=== PATIENT | female | born 1960 | race Caucasian/White ===

== ENCOUNTER → 2017-07-16 | Day surgery (SDC) | payer OTHER ==
[~2017-07-16] VITALS: Ht 170.2 cm; Wt 80.7 kg
--- NOTE | 2017-07-16 16:57 | Operative Report ---
Operative/Inv Procedure Report Surgery Date: 07/16/17 Name of Procedure: Incisional biopsy of deep neck mass , left Pre-Operative Diagnosis: Neck mass, left, level III / IV Post-Operative Diagnosis: Same Estimated Blood Loss: scant Surgeon/Breastfeeding Program Coordinator: Vonda Le MD Anesthesia: general endotracheal tube Drains: Rubber band drain Specimens: Left neck mass Microbiology: Left neck mass Complications: None Condition: Stable on leaving the OR Operative Indication: Left neck mass Operative/Procedure Note Note: The patient was brought to the operating room, placeded on the operating room table in supine position. At first timeout was performed including patient's identification and the surgical procedure to be performed. Then general orotracheal anesthesia was induced. Endotracheal tube was secured over the right corner of the lips. Table was rotated 90 to the patient's left away from anesthesia with left neck toward the surgeon. Neck was slightly hyperextended and rotated to the right, left neck exposed. Neck was prepped and draped in the routine manner and surgery was performed. A horizontal incision was placed in a skin crease manner about 2 fingerbreadths above the clavicle overlying the inferior aspect of the mass. The mass was located under the sternocleidomastoid in its lateral aspect within level 3/4 of the neck. The incision was crosshatched for the end of the surgery skin approximation. The incision was carried with a 15 blade through the skin and subcutaneous tissue. Platysma was identified and transected . Skin was then elevated in subplatysmal manner at first superiorly. Sternocleidomastoid muscle came into view. Dissection was carried to identify the posterior border of the sternocleidomastoid. The posterior border of the sternocleidomastoid was then retracted and dissection was carried under the muscle. The neck mass was quite firm and easily identified. Dissection was carried directly over the mass until adequate exposure of its surface was accomplished. Incisional biopsy into the mass was then carried. Specimen was sent for cultures and pathology. Bleeding was controlled by application of pressure followed by Bovie cautery followed by application of Helotene into the defect for control of bleeding. A rubber band drain was inserted into the wound for drainage. Surgery was completed. Closure was then carried at first platysma with 5-0 Vicryl inverting sutures followed by skin closure with 5-0 Vicryl horizontal subcuticular running stitch. Dermabond was applied to the incision followed by Steri-Strips. Pressure dressing was placed with fluffs and wraparound four-inch gauze. Patient was then reawakened, extubated and taken to the recovery room in good condition. Estimated blood loss was scant. Findings: 4 x 5 cm mass level 3/4 left neck under the sternocleidomastoid especially posterior aspect Discharge Disposition: PACU
== END ==
LOC: STS 03:43
DX: C76.0 Malignant neoplasm of head, face and neck (principal); Z87.891 Personal history of nicotine dependence; M54.2 Cervicalgia; K21.9 Gastro-esophageal reflux disease without esophagitis
CPT/HCPCS: 87070; 87075; J0131; J2250

== ENCOUNTER 2017-08-22 02:11 | Inpatient (IN) | payer OTHER ==
[~2017-08-22] VITALS: Ht 170.2 cm; Wt 83.0 kg
[~2017-08-22 02:11] MED LIST: LANSOPRAZOLE30 M2 PO
[2017-08-22] MEDS ORDERED: LANSOPRAZOLE30 M2 PO (06:34)
--- NOTE | 2017-08-22 13:03 | Admission Core Measures ---
Acute Coronary Syndrome (CM) ACS Core Measures Acute Coronary Syndrome Diagnosis No Congestive Heart Failure (NEW) CHF Core Measures Congestive Heart Failure Diagnosis No Cerebrovascular Accident (NEW) CVA Core Measures CVA/TIA Diagnosis No Venous Thromboembolism VTE Core Valerie (View Protocol) VTE Risk Factors Surgery No Mechanical VTE Prophylaxis d/t N/A MechProphylax Ordered No VTE Pharm Prophylaxis d/t Surgical Contraindication Problem List As ranked by this Provider includes Assessment & Plan 1. Neck mass HOME MEDS Home Med List Lansoprazole 30 MG CAPSULE.DR 1 CAP PO DAILY REFLUX (Reported)
[2017-08-22] MEDS ORDERED: PERCOCET 5-3251 EACH PO (20:56)
--- NOTE | 2017-08-22 20:58 | Operative Report ---
Operative/Inv Procedure Report Surgery Date: 08/22/17 Name of Procedure: 1. Cervical Esophagoscopy 2. Direct laryngoscopy 3. Hypoharyngoscopy with base of tongue resection, left 4. Tonsillectomy 5. 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 Right tonsil 2. Left tonsil and base of tongue 3. Middle tongue biopsy 4. Neck dissection levels 2, 3, 4, 5 6. Supraclavicular nodes Microbiology: None Complications: None Condition: Stable on leaving the OR Operative Indication: Right-sided neck adenopathy Incisional biopsy consistent with squamous cell carcinoma, PT 16-positive PET scan - uptake within cervical lymph nodes, left and left right tonsil and base of tongue Patient now presents for selective neck dissection, tonsillectomy, base of tongue resection and panendoscopy Operative/Procedure Note Note: The patient was brought to the operating room, placeded on the operating room table in supine position. At first timeout was performed including patient's identification and the surgical procedure to be performed. Then general orotracheal anesthesia was induced with Nims tube for monitoring of the laryngeal nerves. Endotracheal tube secured in the left corner of the mouth. Operating room table was turned 90 away from anesthesia, toward the patient's right. Eyes were protected with tape and wet sponge. Patient's head was was sterilely dressed followed by a full body drape. Dental guard was inserted into the mouth and secured over upper teeth. Panendoscopy was performed. First, short cervical esophagoscope was used to carry cervical esophagoscopy. The esophagoscope was advanced in oral cavity, hypopharynx and esophageal inlet. The esophagoscope was then advanced into the esophageal inlet and from there into the cervical esophagus. The esophageal mucosa appeared to be clear and lumen was intact. There were no evidence of lesions. The esophagoscope was withdrawn. Next, anterior commissure laryngoscope and direct laryngoscopy was carried. The laryngoscope was advanced into oropharynx, hypopharynx and larynx. Base of tongue on the left had 1.5 cm mucosally covered lesion, right base of tongue appeared to be clear. Vallecula was intact. Epiglottis both over the vallecular and laryngeal surfaces was intact. Vocal cords appeared to be clear . Anterior and posterior commissure with clear. Piriform sinuses both right and left were intact without evidence of lesions. Laryngoscope was then withdrawn. Next, tonsillectomy was performed. Endotracheal tube was originally taped the left corner of the lip. The endotracheal tube was now repositioned to the midline for tonsillectomy and taped in the midline. Oral cavity was exposed with oral cavity retractor, endotracheal tube positioned in the midline over the tongue. Soft palate was palpated. There was no submucous cleft. Nasopharynx was visualized with a mirror. There was no evidence of adenoid hypertrophy. Right tonsil was grasped with curved Allis, incision was placed over the anterior superior pole of the mucosa only. Tonsil capsule was identified and dissection was carried from superior to inferior until the entire tonsil was removed. Cautery of the tonsillar bed was then carried to assure adequate hemostasis. Next the left tonsil was grasped with curved Allis. Care was taken not to crush the tonsil nor tear surrounding mucosa. Incision was placed with the Bovie over the anterior-superior pole through the mucosa only. Tonsillar capsule was identified and dissection carried from the superior to the inferior until the entire tonsil was removed. Dissection was carried with a Bovie, pencil-tip with foot control set on cut of 5 and coag of 15. During dissection but generous margin and the tonsil was taken by entering into the surrounding muscular layer to assure that adequate margin was obtained. Dissection was extended into the left base of tongue where mucosally covered lesion was present and it was dissected with a Bovie with an extension tip until the entire lesion was removed from base of tongue together with tonsillectomy specimen. At the end of the procedure tonsillar fossa was inspected for bleeders. There was no bleeding. Additional cautery was carried to assure adequate hemostasis. Since there was a significant defect of the left tonsillar fossa, anterior and posterior lip of tonsillar pillar were approximated with a 4-0 Vicryl stitch. Next, hypopharyngoscopy was carried. Hypopharyngoscope was introduced into the oral cavity and oropharynx and hypopharynx. Base of tongue was carefully examined. Adjacent to the excision site there was additional lymphoid hyperplasia which was removed with cup forceps and sent for pathology separately. Bleeding was controlled by application of a Bovie cautery on an extension tip. At the end of the procedure there was no bleeding. All drapes were removed and patient was now positioned for neck dissection. Table was rotated 180 to the patient's left away from anesthesia with left neck toward the surgeon. Neck was slightly hyperextended and head was rotated to the right, left neck exposed. NIMS endotracheal tube was secured over the right corner of the mouth and taped. NIMS monitor electrodes were inserted into the left lower lip and trapezius for nerve monitoring of the marginal mandibular and spinal accessory nerves. The electrodes were was secured in place with OpSite. They were then connected to the NIMS monitor which was then set neck dissection mode, 4 leads, which would also include the 2 leads on the Nims tube for monitoring of the laryngeal nerves. Ground electrodes were placed over the sternum. Neck was prepped and draped in the routine manner and surgery was performed. Patient did extend extensive adenopathy extending from the very superior aspect of the neck adjacent to mastoid tip, level IIb and the lowest and the largest node was located at the thoracic inlet, level IV and V. A horizontal incision was placed in a skin crease manner about 2 fingerbreadths below the mandible. The incision was crosshatched for the end of the surgery skin approximation. The incision was carried with a 15 blade through the skin and subcutaneous tissue. Platysma was identified and transected by using the clamp and cut technique to avoid injury to the marginal mandibular nerve. Skin was then elevated in subplatysmal manner at first superiorly, care was taken not to injure the marginal mandibular nerve. Then inferiorly including anterior neck to the midline and posterior neck over the sternocleidomastoid muscle all the way around to the posterior neck to the region of trapezius muscle. Cutaneous branches exiting the Erb's point were identified and preserved including greater auricular nerve. Finger palpation and examination revealed large 3 cm node at level IIA, as well as adjacent 2 cm no level IIB with adjacent smaller nodes, some of which were firm firm on palpation. Attention was then paid to the anterior medial border of the sternocleidomastoid muscle and dissection was carried anteriorly and deep to the sternocleidomastoid muscle , with the nodes being dissected away from the sternocleidomastoid mastoid muscle. Then superiorly dissection was carried to the tail of the parotid. Deep to the tail and adjacent to sternocleidomastoid muscle and there were additional lymph nodes which were all dissected with the specimen. Then along the tail of the parotid anteriorly to the submaxillary gland. Anterior facial vein was identified. It was preserved. Marginal mandibular nerve was never fully identified throughout the entire dissection. Most likely the marginal mandibular nerve was more anterior to the area of dissection and not in the way of dissection. Dissection was carried along the inferior border of the submaxillary gland and the deep to the level of the digastric muscle. Fibrofatty tissue below the submaxillary gland under the digastric muscle was dissected with the specimen. Dissection was carried deep to the level of internal jugular. Fibrofatty tissue over the internal jugular was dissected away from the jugular vein. Digastric muscle defined the superior limit of the dissection. Jugular vein was preserved. Spinal accessory nerve was then searched for and identified superficial to the 3 cm neck node as it was entering sternocleidomastoid muscle. Spinal accessory nerve was dissected and preserved. Sternocleidomastoid muscle was retracted laterally and dissection was carried deep and medial to it. Dissection was carried medially along the internal jugular and carotid. There was a significant venous plexus with large anterior jugular vein which was also preserved. Superior dissection was carried under the digastric and posterior lateral onto the mastoid tip until the 2 cm node was freed from its attachments. The node was then gradually dissected from the floor of the neck and down swept inferiorly. Medial dissection was carried along the internal jugular all the way down to the lower neck, level III. Omohyoid muscle was identified traversing the internal jugular. At this point superior neck dissection was interrupted and inferior incision was then placed. The incision was placed in the supraclavicular region in a horizontal manner. This incision was previously marked. There was prior incision in this area which was used for for incisional biopsy. Prior incisional scar was completely incorporated into the excision specimen. Subplatysmal planes were elevated and superior flap was connected with the neck dissection as above. The inferior dissection was carried to the level of the clavicle. The skin from prior incision was kept together with the neck dissection specimen. A large 6 cm node was then identified stradling across level IV and V. This node was adherent to the internal jugular. Careful dissection was carried to separate it from its attachments to the jugular. This followed by all dissecting the node away from the inferior most aspect in the supraclavicular region and then from the floor of the neck. Additional 2 nodes were identified in the supraclavicular region and these were removed separately and submitted separately for analysis. They appears to be soft. Now the superior neck dissection was connected with the inferior neck dissection and all the adenopathy was freed and specimen was removed. The specimen was marked with long stitch at the level II . Ansa cervicalis was identified and preserved. Surgery was completed. Wound was copiously irrigated. Additional bleeding sites cauterized with bipolar. Helotene powder was placed into the neck dissection bed. A #10 Tamazight suction drains were inserted into the wound for drainage. One drain coming through the superior incision at its lateral and anterior the anterior at the inferior incision, lateral end. Drains were stitched in place with 2-0 silk. Closure was then carried at first platysma with 4-0 Vicryl inverting sutures followed by skin closure with 5-0 Vicryl horizontal subcuticular running stitch. Dermabond was applied to the incision followed by Steri-Strips. Drain tubing was connected to the self suction carnisters. Pressure dressing was placed with fluffs and wraparound four-inch gauze. Patient was then reawakened, extubated and taken to the recovery room in good condition. There were no complications. Estimated blood loss was 50 mL. Findings: Left tonsil- inferior pole firm on palpation with an adjacent base of tongue 1.5 cm mucosally covered lesion Left neck- extensive adenopathy Discharge Disposition: PACU
[2017-08-22 21:00] VITALS: BP 134/84
--- NOTE | 2017-08-22 21:03 | Patient Discharge Instructions ---
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 Cervical Esophagoscopy 2. Direct laryngoscopy 3. Hypoharyngoscopy with base of tongue resection, left 4. Tonsillectomy 5. Selective neck dissection, left with Nims monitor Watch for these problems: Increased pain, fever > 101.3, chills, difficulty breathing, shortness of breath , redness, swelling or drainage from your incisions Other wound care: Keep incisions clean an dry Change dressing daily as needed Ok to shower Diet Continue normal diet: Yes Recommended Diet: Clear Liquids Activity Activity Self Limited: Yes Acute Coronary Syndrome Inclusion Criteria At DC or during hospital stay patient has or had the following: ACS DIAGNOSIS No Discharge Core Measures Meds if any: Prescribed or Continued at Discharge Meds if any: NOT Prescribed or Continued at Discharge Congestive Heart Failure Inclusion Criteria At DC or during hospital stay patient has or had the following: CHF DIAGNOSIS No Discharge Core Measures Meds if any: Prescribed or Continued at Discharge Meds if any: NOT Prescribed or Continued at Discharge Cerebrovascular accident Inclusion Criteria At DC or during hospital stay patient has or had the following: CVA/TIA Diagnosis No Discharge Core Measures Meds if any: Prescribed or Continued at Discharge Meds if any: NOT Prescribed or Continued at Discharge Venous thromboembolism Inclusion Criteria VTE Diagnosis No VTE Type NONE VTE Confirmed by (Test) NONE Discharge Core Measures - Per Current guidelines, there needs to be overlap - treatment for the first 5 days of Warfarin therapy. - If discharged on Warfarin prior to 5 days of - overlap therapy, the patient will need to be - assessed for post discharge needs including - *Post discharge parental anticoagulation - *Warfarin and/or parental anticoagulation education - *Follow up date to check INR post discharge At least 5 days overlap therapy as Inpatient No Meds if any: Prescribed or Continued at Discharge Note: Overlap Therapy is Warfarin and Anticoagulant Meds if any: NOT Prescribed or Continued at Discharge
--- NOTE | 2017-08-22 22:13 | PN- General Surgery ---
Subjective Subjective: Patient reports vomiting a small amount of clear/brown material when she arrived to the ICU. She reports throat discomfort when she exhales. She states her pain is well controlled and reports voiding. She tolerated ice chips and water without any dysphaia Objective Vital Signs and I&Os Intake & Output 08/22 1600 08/22 0800 08/22 0000 08/21 1600 08/21 0800 08/21 0000 Intake Total Output Total Balance Patient 180 lb Weight Physical Exam: Vitals - afebrile, VSS Gen - resting comfortably in bed awake an alert in NAD Neck - circumferential dressing in place c/d/i, jpx2 with serosanguineous drainage 5/10 cc, no active drainage, or hematoma appreciated, CN VII, X-XII intact Cardiac - S1S2 noted, RRR Lungs - CTAB, no w/r/r Ext - alps in place, no edema or calf tenderness Current Medications: Current Medications Sig/Rey Start time Last Medication Dose Route Stop Time Status Admin Acetaminophen 1,000 MG Q6P PRN 08/22 2129 UNVr IV Acetaminophen 1,000 MG .STK-MED ONE 08/22 0637 DC IV 08/22 0638 Cefazolin Sodium 2 GM IQ8 08/22 2199 UNVr N/A 1 UNIT IV 08/23 2159 Dextrose/Sodium 1,000 ML .[id number] 08/22 2130 AC 08/22 Chloride IV 212 Fentanyl Citrate 200 MCG .STK-MED ONE 08/22 0638 DC IM 08/22 0639 Heparin Sodium 5,000 UNIT Q8 08/23 0600 AC (Porcine) SC Hydromorphone HCl 2 MG .STK-MED ONE 08/22 0636 DC IM 08/22 0637 Ketorolac 15 MG Q6P PRN 08/22 1900 AC Tromethamine IV 08/25 1859 Midazolam HCl 2 MG .STK-MED ONE 08/22 1107 DC IM 08/22 1108 Midazolam HCl 2 MG .STK-MED ONE 08/22 0638 DC IM 08/22 0639 Morphine Sulfate 4 MG Q3P PRN 08/225 UNVr IV Morphine Sulfate 2 MG Q3P PRN 08/22 2130 UNVr IV Morphine Sulfate 6 MG Q2P PRN 08/22 2130 UNVr 08/22 IV 08/22 Morphine Sulfate 6 MG Q3P PRN 08/22 2129 UNVr IV Ondansetron HCl 4 MG Q6P PRN 08/22 2129 AC 08/22 IV 2208 Pantoprazole Sodium 40 MG DAILY 08/23 1000 AC IV Promethazine HCl 12.5 MG Q6P PRN 08/22 2129 AC IV 08/29 1859 Remifentanil HCl 2 MG .STK-MED ONE 08/22 0711 DC IV 08/22 0712 Remifentanil HCl 4 MG .STK-MED ONE 08/22 0637 DC IV 08/22 0638 Assessment/Plan Assessment/Plan 57 F POD 0 s/p cervical esophagoscopy, direct laryngoscopy, hypoharyngoscopy with base of left tongue resection, tonsillectomy, left selective neck dissection with Nims monitor secondary to squamous cell carcinoma metastatic to the left neck who is recovering well postoperatively Advance to clears, IVF Cont Ancef while drains are in JPx2 to bulb suction Pain regimen prn Antiemetics prn Monitor I&Os Keep trach kit at bedside GI/DVT ppx on board Cont ICU level of care Core Measures Venous Thromboembolism VTE Risk Factors Surgery No Mechanical VTE Prophylaxis d/t N/A MechProphylax Ordered No VTE Pharm Prophylaxis d/t Surgical Contraindication
--- NOTE | 2017-08-22 22:20 | Surg Short-stay <48hrs Dis Sum ---
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 Cervical Esophagoscopy 2. Direct laryngoscopy 3. Hypoharyngoscopy with base of tongue resection, left 4. Tonsillectomy 5. Selective neck dissection, left with Nims monitor with Dr. Le on 08/22/17 Summary/Significant Findings: Patient underwent an elective cervical esophagoscopy, direct laryngoscopy, hypoharyngoscopy with base of tongue resection, left, tonsillectomy, selective neck dissection, left with Nims monitor secondary to squamous cell carcinoma metastatic to left neck by Dr. Le and was brought to PACU and then transferred to the ICU in stable condition. Postoperatively, her diet was advanced and tolerated. She voided spontaneously and her pain was controlled with oral medication. She was deemed stable for discharge. Condition at Discharge: Stable Discharge Disposition: home or self care Discharge instructions provided to patient/family: Yes Post discharge follow-up plan: F/u with Dr. Le in 1-2 weeks
[2017-08-23] VITALS: BP 96/54
[2017-08-23 04:51] LABS: ABSOLUTE BASOPHIL COUNT 0 /CUMM (0.0-0.2); ABSOLUTE EOSINOPHIL COUNT 0 /CUMM (0.0-0.7); ABSOLUTE LYMPH COUNT 1.2 /CUMM (1.2-3.4); ABSOLUTE MONOCYTE COUNT 0.7 /CUMM (0.10-0.60); BASOPHIL % 0 % (0.0-2.0); EOSINOPHIL % 0 % (0-5); RED BLOOD CELL CT 3.56 /CUMM (4.20-5.40)
[2017-08-23 05:21] LABS: ABSOLUTE GRANULOCYTE CT 10.1 /CUMM (1.4-6.5); MEAN CORPUSCULAR HGB 30.3 PG (27.0-31.0); MEAN CORPUSCULAR HGB CONC 33.7 G/DL (33.0-37.0); MEAN CORPUSCULAR VOLUME 89.9 FL (81.0-99.0); PLATELET COUNT 201 /CUMM (130-400); RBC DISTRIBUTION WIDTH 12.8 % (11.5-14.5)
--- NOTE | 2017-08-23 05:52 | PN- General Surgery ---
See Addendum Subjective Subjective: Patient reports a sensation of mucus in the back of her throat, she reports dizziness when returned to bed after urinating on the commode. She states her pain is well controlled. She reports her nausea has resolved. Offer no other complaints. She states she only had ice chips and water last night, without any dysphagia. Objective Vital Signs and I&Os Vital Signs Date Time Temp Pulse Resp B/P B/P Pulse O2 O2 Flow FiO2 Mean Ox Delivery Rate 08/23 0400 Room Air 08/23 0000 97.2 60 16 96/54 95 Nasal 2.0L Cannula 08/23 0000 96 Nasal 2.0L Cannula 08/22 2129 97 Nasal 2.0L Cannula 08/22 2100 98.5 94 18 134/84 94 Nasal 2.0L Cannula Intake & Output 08/23 0800 08/23 0000 08/22 1600 08/22 0800 08/22 0000 08/21 1600 Intake Total 100 Output Total 285 Balance -185 Intake, IV 100 Output, 15 Drainage Output, 120 Emesis Output, Urine 150 Patient 183 lb 180 lb Weight Weight Bed scale Measurement Method Physical Exam: Gen - resting comfortably in bed awake an alert in NAD Neck - circumferential dressing in place c/d/i, jpx2 with serosanguineous drainage 4/4 cc, no active drainage, or hematoma appreciated Cardiac - S1S2 noted, RRR Lungs - CTAB, no w/r/r Ext - alps in place, no edema or calf tenderness Current Medications: Current Medications Sig/Rey Start time Last Medication Dose Route Stop Time Status Admin Acetaminophen 1,000 MG Q6P PRN 08/22 2129 AC IV Acetaminophen 1,000 MG .STK-MED ONE 08/22 0537 DC IV 08/22 637 Cefazolin Sodium 2 GM IQ8 08/22 2200 AC 08/22 N/A 1 UNIT IV 08/23 2159 2334 Dextrose/Sodium 1,000 ML .[id number] 08/22 2129 AC 08/22 Chloride IV 2125 Fentanyl Citrate 200 MCG .STK-MED ONE 08/22 637 DC IM 08/22 0639 Heparin Sodium 5,000 UNIT Q8 08/23 06 AC (Porcine) SC Hydromorphone HCl 2 MG .STK-MED ONE 08/22 2039 DC IM 08/22 2040 Hydromorphone HCl 2 MG .STK-MED ONE 08/22 2012 DC IM 08/22 2013 Hydromorphone HCl 2 MG .STK-MED ONE 08/22 0636 DC IM 08/22 0637 Influenza Virus 0.5 ML ONCE ONE 08/23 0030 DC Vaccine IM 08/23 0031 Ketorolac 15 MG Q6P PRN 08/22 1900 AC Tromethamine IV 08/25 1859 Midazolam HCl 2 MG .STK-MED ONE 08/22 1107 DC IM 08/22 1108 Midazolam HCl 2 MG .STK-MED ONE 08/22 0638 DC IM 08/22 0639 Morphine Sulfate 4 MG Q3P PRN 08/22 2215 AC IV Morphine Sulfate 2 MG Q3P PRN 08/22 2130 AC 08/23 IV 0315 Morphine Sulfate 6 MG Q2P PRN 08/22 2130 DC 08/22 IV 08/22 2212 2208 Morphine Sulfate 6 MG Q3P PRN 08/22 2130 AC IV Ondansetron HCl 4 MG Q6P PRN 08/22 2130 AC 08/22 IV 2208 Pantoprazole Sodium 40 MG DAILY 08/23 1000 AC IV Promethazine HCl 12.5 MG Q6P PRN 08/22 2130 AC IV 08/29 1859 Remifentanil HCl 4 MG .STK-MED ONE 08/22 1543 DC IV 08/22 1544 Remifentanil HCl 4 MG .STK-MED ONE 08/22 1438 DC IV 08/22 1439 Remifentanil HCl 2 MG .STK-MED ONE 08/22 0711 DC IV 08/22 0712 Remifentanil HCl 4 MG .STK-MED ONE 08/22 0637 DC IV 08/22 0638 Results Last 48 Hours of Labs: Laboratory Tests 08/23 0320 Chemistry Sodium (137 - 145 mmol/L) 142 Potassium (3.5 - 5.1 mmol/L) 4.0 Chloride (98 - 107 mmol/L) 104 Carbon Dioxide (22 - 30 mmol/L) 23 Anion Gap (5 - 16) 14 BUN (7 - 17 mg/dL) 13 Creatinine (0.5 - 1.0 mg/dL) 0.7 Estimated GFR (>60 ml/min) > 60 BUN/Creatinine Ratio (7 - 25 %) 18.6 Hematology CBC w Diff Pending WBC Pending RBC Pending Hgb Pending Hct Pending MCV Pending MCH Pending MCHC Pending RDW Pending Plt Count Pending MPV Pending Assessment/Plan Assessment/Plan 57 F POD 1 s/p cervical esophagoscopy, direct laryngoscopy, hypoharyngoscopy with base of left tongue resection, tonsillectomy, left selective neck dissection with Nims monitor secondary to 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 Advance to clears, 500 cc fluid bolus Monitor BP, avoid narcotics Cont Ancef while drains are in JPx2 to bulb suction, likely d/c today Pain regimen prn Antiemetics prn Monitor I&Os Keep trach kit at bedside GI/DVT ppx on board Anticipate d/c today if pt tolerates diet advancement Will d/w Dr. Le Core Measures Venous Thromboembolism VTE Risk Factors Surgery No Mechanical VTE Prophylaxis d/t N/A MechProphylax Ordered No VTE Pharm Prophylaxis d/t Surgical Contraindication
[2017-08-23 05:57] LABS: GRANULOCYTE % 84.7 % (42.2-75.2)
[2017-08-23 08:00] VITALS: BP 90/50
--- NOTE | 2017-08-23 13:05 | PN- Ear, Nose & Throat ---
Subjective Subjective: POD#1 Doing well Low energy level, sleepy Has been up and walking around Tolerating clear liquids well Review of Systems: Noncontributory Objective Vital Signs and I&Os Vital Signs Date Time Temp Pulse Resp B/P B/P Pulse O2 O2 Flow FiO2 Mean Ox Delivery Rate 08/23 0800 Room Air 08/23 0800 98.5 80 20 90/50 95 Room Air 08/23 0400 Room Air 08/23 0000 97.2 60 16 96/54 95 Nasal 2.0L Cannula 08/23 0000 96 Nasal 2.0L Cannula 08/22 2130 97 Nasal 2.0L Cannula 08/22 2100 98.5 94 18 134/84 94 Nasal 2.0L Cannula Intake & Output 08/23 1600 08/23 0800 08/23 0000 08/22 1600 08/22 0800 08/22 0000 Intake Total 1360 100 Output Total 728 285 Balance 632 -185 Intake, IV 1300 100 Intake, Oral 60 Output, 8 15 Drainage Output, 120 Emesis Output, Urine 720 150 Patient 183 lb Weight Weight Bed scale Measurement Method [id number] Oropharynx: tonsillar fossaefibrinous exudates Neck: Dressing changed, no edema no hematoma, Steri-Strips in place JPx2-minimal drainage Current Medications: Current Medications Sig/Rey Start time Last Medication Dose Route Stop Time Status Admin Acetaminophen 1,000 MG Q6P PRN 08/22 2130 AC 08/23 IV 0635 Cefazolin Sodium 2 GM IQ8 08/22 2200 AC 08/23 N/A 1 UNIT IV 08/23 2159 0800 Dextrose/Sodium 1,000 ML .[id number] 08/22 2129 AR 08/22 Chloride IV 2126 Heparin Sodium 5,000 UNIT Q8 08/23 0600 (Porcine) SC Hydromorphone HCl 2 MG .STK-MED ONE 08/22 2039 DC IM 08/22 2040 Hydromorphone HCl 2 MG .STK-MED ONE 08/22 2011 DC IM 08/22 2012 Influenza Virus 0.5 ML ONCE ONE 08/23 0030 DC 08/23 Vaccine IM 08/23 0031 1112 Ketorolac 15 MG Q6P PRN 08/22 1900 AC 08/23 Tromethamine IV 08/25 1859 1111 Morphine Sulfate 4 MG Q3P PRN 08/22 2215 AC IV Morphine Sulfate 2 MG Q3P PRN 08/22 2129 AC 08/23 IV 0315 Morphine Sulfate 6 MG Q2P PRN 08/22 2129 DC 08/22 IV 08/22 2211 2208 Morphine Sulfate 6 MG Q3P PRN 08/22 2129 AC IV Ondansetron HCl 4 MG Q6P PRN 08/22 2129 AC 08/23 IV 0903 Pantoprazole Sodium 40 MG DAILY 08/23 1000 AC 08/23 IV 1111 Promethazine HCl 12.5 MG Q6P PRN 08/22 2129 AC IV 08/29 1859 Remifentanil HCl 4 MG .STK-MED ONE 08/22 1543 DC IV 08/22 1544 Remifentanil HCl 4 MG .STK-MED ONE 08/22 1438 DC IV 08/22 1439 Sodium Chloride 500 ML BOLUS ONE 08/23 0600 DC 08/23 IV 08/23 0659 0634 Results Last 48 Hours of Labs: Laboratory Tests 08/23 0320 Chemistry Sodium (137 - 145 mmol/L) 142 Potassium (3.5 - 5.1 mmol/L) 4.0 Chloride (98 - 107 mmol/L) 104 Carbon Dioxide (22 - 30 mmol/L) 23 Anion Gap (5 - 16) 14 BUN (7 - 17 mg/dL) 13 Creatinine (0.5 - 1.0 mg/dL) 0.7 Estimated GFR (>60 ml/min) > 60 BUN/Creatinine Ratio (7 - 25 %) 18.6 Hematology CBC w Diff NO MAN DIFF REQ WBC (4.8 - 10.8 /CUMM) 12.0 H RBC (4.20 - 5.40 /CUMM) 3.56 L Hgb (12.0 - 16.0 G/DL) 10.8 L Hct (37 - 47 %) 32.0 L MCV (81.0 - 99.0 FL) 89.9 MCH (27.0 - 31.0 PG) 30.3 MCHC (33.0 - 37.0 G/DL) 33.7 RDW (11.5 - 14.5 %) 12.8 Plt Count (130 - 400 /CUMM) 201 MPV (7.4 - 10.4 FL) 9.0 Gran % (42.2 - 75.2 %) 84.7 H Lymphocytes % (20.5 - 51.1 %) 9.7 L Monocytes % (1.7 - 9.3 %) 5.6 Eosinophils % (0 - 5 %) 0 Basophils % (0.0 - 2.0 %) 0 Absolute Granulocytes (1.4 - 6.5 /CUMM) 10.1 H Absolute Lymphocytes (1.2 - 3.4 /CUMM) 1.2 Absolute Monocytes (0.10 - 0.60 /CUMM) 0.7 H Absolute Eosinophils (0.0 - 0.7 /CUMM) 0 Absolute Basophils (0.0 - 0.2 /CUMM) 0 Assessment/Plan Assessment/Plan 1. s/p neck dissection, left, tonsillectomy, base of tongue resection, left 2. Mildly elevated white count Stable postop Remove 1 drain, the upper drain today Continue with IV antibiotics Hep-Lock IV if tolerating by mouth well Continue with clear liquid diet Out of bed and ambulate Check CBC in a.m. Discharge tomorrow if patient continues to do well Core Measures Venous Thromboembolism VTE Risk Factors Surgery No Mechanical VTE Prophylaxis d/t N/A MechProphylax Ordered No VTE Pharm Prophylaxis d/t Surgical Contraindication
[2017-08-23 14:07] VITALS: BP 128/60
[2017-08-23 14:28] VITALS: BP 128/60
[2017-08-23 22:05] VITALS: BP 120/70
[2017-08-24 06:00] VITALS: BP 118/76
[2017-08-24 10:06] LABS: ABSOLUTE BASOPHIL COUNT 0 /CUMM (0.0-0.2); ABSOLUTE EOSINOPHIL COUNT 0.1 /CUMM (0.0-0.7); ABSOLUTE GRANULOCYTE CT 5.3 /CUMM (1.4-6.5); ABSOLUTE LYMPH COUNT 2.9 /CUMM (1.2-3.4); ABSOLUTE MONOCYTE COUNT 0.7 /CUMM (0.10-0.60); BASOPHIL % 0.3 % (0.0-2.0); EOSINOPHIL % 0.9 % (0-5); GRANULOCYTE % 58.5 % (42.2-75.2); HEMATOCRIT 32.3 % (37-47); MEAN CORPUSCULAR HGB 30.3 PG (27.0-31.0); MEAN CORPUSCULAR HGB CONC 33.4 G/DL (33.0-37.0); MEAN CORPUSCULAR VOLUME 90.7 FL (81.0-99.0); MEAN PLATELET VOLUME 8.5 FL (7.4-10.4); PLATELET COUNT 196 /CUMM (130-400); RBC DISTRIBUTION WIDTH 12.7 % (11.5-14.5); RED BLOOD CELL CT 3.56 /CUMM (4.20-5.40)
--- NOTE | 2017-08-24 10:54 | PN- Ear, Nose & Throat ---
Subjective Subjective: Pt has no major complaints this morning. She is tolerating small amounts of clears. Pain is reasonably controlled. One of the GONZALES drains was removed last night and one remains in place. Objective Vital Signs and I&Os Vital Signs Date Time Temp Pulse Resp B/P B/P Pulse O2 O2 Flow FiO2 Mean Ox Delivery Rate 08/24 0600 98.9 81 18 118/76 96 Room Air 08/23 2205 98.6 85 20 120/70 96 08/23 1428 98.1 80 20 128/60 97 Room Air 08/23 1407 98.1 80 20 128/60 97 Room Air Intake & Output 08/24 1600 08/24 0800 08/24 0000 08/23 1600 08/23 0800 08/23 0000 Intake Total 120 335 617 2630 100 Output Total 355 5 335 728 285 Balance -235 695 -35 632 -185 Intake, IV 1300 100 Intake, Oral 120 700 300 60 Output, 5 5 15 8 15 Drainage Output, 120 Emesis Output, Urine 350 320 720 150 Patient 183 lb Weight Weight Bed scale Measurement Method Physical Exam: Gen.: Patient is awake and alert. No acute distress. HEENT: Neck dressing remains in place and is clean. GONZALES output is scant serosanguineous. Cranial nerves are grossly intact. Cardiac: Regular Pulmonary: Clear bilaterally Assessment/Plan Assessment/Plan Patient is as 57-year-old female who is now postoperative day #2 status post left neck and base of tongue dissection tonsillectomy for squamous cell carcinoma. She is progressing well from a surgical standpoint. Plan: -Continue clear liquid diet. -I spoke with Dr. Le. She gave the okay for drain to be removed. This has been done without complication. Patient tolerated well and will be discharged home. -Prescriptions for Percocet and antibiotics were sent by Dr. Le to patient's home pharmacy. -Patient can follow-up in the office with Dr. Le. This is already been scheduled. Core Measures Venous Thromboembolism VTE Risk Factors Surgery No Mechanical VTE Prophylaxis d/t N/A MechProphylax Ordered No VTE Pharm Prophylaxis d/t Surgical Contraindication
[2017-08-24] MEDS ORDERED: CEFADROXIL500 M1 PO (11:53)
[2017-08-24 14:08] VITALS: BP 140/80
== END 2017-08-24 14:14 | DRG 129 ==
LOC: SDA 02:11 → STS 07:00 → EDSTATUS 07:00 → SDA 07:00 → ENRESERV 20:21 → ENTRNSPT 20:54 → EDTRNSPTSTS 20:59 → CMPTRNSPT 21:10 → CRI 21:23 → ENTRNSPT 08-23 10:46 → EDTRNSPTTYP 08-23 10:49 → EDTRNSPT 08-23 10:49 → CMPTRNSPT 08-23 10:50 → 2NA 08-23 10:56 → ENTRNSPT 08-24 14:07 → EDTRNSPTSTS 08-24 14:11 → EDTRNSPTTM 08-24 14:11 → 2NA 08-24 14:14 → CMPTRNSPT 08-24 14:23
PROVIDERS: Nurse Practitioner; Physician Assistant Surgical
PROC: 0CB Mouth and Throat, Excision (ICD-10-PCS; principal; 2017-08-22)
PROC: 0CJS8ZZ Inspection of Larynx, Via Natural or Artificial Opening Endoscopic (ICD-10-PCS; principal; 2017-08-22)
PROC: 0CTPXZZ Resection of Tonsils, External Approach (ICD-10-PCS; principal; 2017-08-22)
PROC: 07T20ZZ Resection of Left Neck Lymphatic, Open Approach (ICD-10-PCS; principal; 2017-08-22)
DX: C10.9 Malignant neoplasm of oropharynx, unspecified (principal); C77.0 Secondary and unspecified malignant neoplasm of lymph nodes of head, face and neck; K21.9 Gastro-esophageal reflux disease without esophagitis; Z80.0 Family history of malignant neoplasm of digestive organs; Z87.891 Personal history of nicotine dependence; Z80.8 Family history of malignant neoplasm of other organs or systems
CPT/HCPCS: 2NAP; CCU; 36415; 82436; 87086; C9399; J0131; J0171; J0690; J1100; J1644; J2270; J2405; J2550; J7040; J7042; Q2036

== ENCOUNTER → 2017-10-02 | Day surgery (SDC) | payer OTHER ==
[~2017-10-02] VITALS: Ht 170.2 cm; Wt 76.2 kg
[~2017-10-02] MED LIST changes: +CEFADROXIL500 M1 PO; +PERCOCET 5-3251 EACH PO
--- NOTE | 2017-10-02 09:23 | Operative Report ---
Operative/Inv Procedure Report Surgery Date: 10/02/17 Name of Procedure: Right axillary vein Port-A-Cath placement with ultrasound and fluoroscopic guidance Pre-Operative Diagnosis: Squamous cell carcinoma of the head and neck Post-Operative Diagnosis: Same Estimated Blood Loss: scant Surgeon/[employer] Buffer: Martín DOMINIQUE,Hugo Frias Anesthesia: local monitored anesthesi Implants: [employer] Operative/Procedure Note Note: Patient brought to the operating room and laid supine. Her arm tucked and a roll placed behind the shoulder. The left chest and neck were then prepped and draped. Patient was sedated. Using ultrasound imaging the right axillary vein was visualized and percutaneously accessed after local anesthesia placed. A wire was placed on the right atrium. Confirmation with fluoroscopic imaging was performed. The chest was then infiltrated further with local anesthesia an incision made over the wire. An inferiorly based pocket was created with blunt and cautery dissection. The port was placed into the pocket and the catheter measured under fluoroscopic imaging. It was trimmed to 22 cm. Using fluoroscopy the dilator was placed down into the SVC. The wire was removed and passed off the field. The catheter was placed through the peel-away sheath. Sheath was then removed. Final fluoroscopic images show the catheter in the atrial SVC junction. The catheter was aspirated and flushed with concentrated heparin. The port was anchored to the deep subcutaneous tissues tissues with 2- 0 Vicryl suture. The skin was closed with 3-0 and 4-0 Vicryl. Steri-Strips and sterile dressing applied. Sponge and needle counts are correct. CC: Mimi DOMINIQUE,Vonda Randolph; Shivam DOMINIQUE,Arcadio Yen; Katheryn DOMINIQUE,[facility]
--- NOTE | 2017-10-02 10:09 | RADIOLOGY REPORT ---
EXAMINATION: XR PORTABLE CHEST CLINICAL INFORMATION: Right chest Port-A-Cath placement COMPARISON: Chest x-ray 05/27/2017. PET CT 08/06/2017 TECHNIQUE: Portable frontal view of the chest was obtained. FINDINGS: No focal consolidation or mass. No pleural effusion or pneumothorax. Normal heart size. Regional skeleton intact. Degenerative changes of the bilateral acromioclavicular joints. There is a new CT compatible right subclavian approach chest port. The tip of the catheter is at the cavoatrial junction. IMPRESSION: New CT compatible right subclavian approach chest port with the tip of the catheter at the cavoatrial junction. No pneumothorax.
--- NOTE | 2017-10-02 12:49 | RADIOLOGY REPORT ---
EXAMINATION: INTRAOPERATIVE FLUOROSCOPIC GUIDANCE AND CHEST CLINICAL INFORMATION: Port-A-Cath placement. COMPARISON: Same day chest radiograph. TECHNIQUE: Fluoroscopic time was utilized in the OR for Dr. Resendiz. Fluoroscopic images were obtained in the AP projection. FINDINGS: Fluoroscopic guidance was provided during placement of a right-sided Port-A-Cath. FLUOROSCOPY TIME: 60 seconds of fluoroscopic time was utilized for the entirety of this examination. IMPRESSION: Fluoroscopic guidance was provided during placement of a right-sided Port-A-Cath.
== END ==
LOC: STS 03:55
DX: C76.0 Malignant neoplasm of head, face and neck (principal); Z87.891 Personal history of nicotine dependence; M19.90 Unspecified osteoarthritis, unspecified site
CPT/HCPCS: 71045; C1788; J1644; J2250

== ENCOUNTER 2017-11-04 07:57 | Inpatient (IN) | payer OTHER ==
[~2017-11-04] VITALS: Ht 167.6 cm; Wt 68.9 kg
--- NOTE | 2017-11-04 15:38 | History & Physical ---
See Addendum General Information and HPI MD Statement: I have seen and personally examined MONICA RANDALL and documented this H&P. The patient is a 57 year old F who presented with a patient stated chief complaint of [difficulty swallowing, nausea, weight loss]. Source of Information: patient, old records Exam Limitations: no limitations History of Present Illness: Mrs. Randall is a 57 yo lady with a hx. of recently diagnosed SCC of head and neck on May 2017. Patient was in her usual state of health until April 2017 when she started to noticed 2 suddenly enlarged lymph nodes in the left side of the neck, she went to an urgent care clinic and found to have fever and hypertensive urgency, she was sent to [facility] emergency department in which CT neck was done which showed left-sided lymphadenopathy, so patient was referred to surgery who did a needle biopsy which was nonconclusive, she was then referred to ENT doctor (Dr. Barillas) who recommended excisional biopsy of the lymph node which showed squamous cell carcinoma, currently she is status post surgical resection of tonsils, base of the tongue, with lymph node dissection of the left neck on . After surgery she was started on chemotherapy (cisplatin) once a week and radiotherapy 5 times a week, she started to develop inflammation and rash within her oral cavity and throat with dysphagia. She often times has nausea and vomiting and has a difficult time swallowing. As a result, she has been progressively losing weight. despite being on antiemetic her symptoms is not improving, she is on clear liquid diet, but she has difficulty eating as she feels all the time as there is hair inside her mouth and throat, she also lost the taste sense. She is seen in interventional radiology clinic for consideration of gastrostomy tube placement for nutritional supplementation as lately she started to feel weak, hungry all the time, she lost weigt since her surgery in [facility] about 15 Ib. Allergies/Medications Allergies: Coded Allergies: Penicillins (PER PT MD CRAFT ADDED PCN 10/01/17) diphenhydramine (From BENADRYL) (BODY ACHES 10/01/17) doxycycline (ANAPHYLAXIS 10/01/17) guaifenesin (From ROBITUSSIN) (BODY ACHES 10/01/17) oxacillin (ANAPHYLACTIC 10/01/17) Home Med list Lansoprazole 30 MG CAPSULE.DR 1 CAP PO DAILY REFLUX (Reported) Prochlorperazine Maleate 10 MG TABLET 1 TAB PO Q6 NAUSEA (Reported) Saliva Substitute Combo No.2 (Caphosol) 900 ML SOLUTION 900 ML PO DAILY PRN ITCHING (Reported) Past History Medical History Neurological: NONE EENT: NONE Cardiovascular: NONE Respiratory: NONE Gastrointestinal: GERD Hepatic: NONE Renal: NONE Musculoskeletal: osteoarthritis Psychiatric: NONE Endocrine: NONE Blood Disorders: NONE Cancer(s): NONE 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 Ambulation: independent, cane, walker, non-ambulatory Review of Systems Review of Systems Constitutional: Reports: malaise. EENTM: Reports: throat pain. Cardiovascular: Reports: no symptoms. Respiratory: Reports: no symptoms. GI: Reports: nausea. Genitourinary: Reports: no symptoms. Musculoskeletal: Reports: no symptoms. Skin: Reports: no symptoms. Neurological/Psychological: Reports: no symptoms. Hematologic/Endocrine: Reports: no symptoms. Immunologic/Allergic: Reports: no symptoms. All Other Systems: Reviewed and Negative Exam & Diagnostic Data Last 24 Hrs of Vital Signs/I&O Vital Signs Date Time Temp Pulse Resp B/P B/P Pulse O2 O2 Flow FiO2 Mean Ox Delivery Rate 11/04 1553 98.6 68 20 106/78 97 Room Air Physical Exam General Appearance Alert, Oriented X3, Cooperative, No Acute Distress Skin No Rashes, No Breakdown, No Significant Lesion HEENT Atraumatic, PERRLA, EOMI, Mucous Membr. moist/pink Neck Supple, No JVD, No thryomegaly, left side of the neck incision scar Lymphatic Axillary nl, Cervical nl Cardiovascular Regular Rate, Normal S1, Normal S2, No Murmurs Lungs Clear to Auscultation, Normal Air Movement Abdomen Normal Bowel Sounds, Soft, No Tenderness Neurological Normal Gait, Normal Speech, Strength at 5/5 X4 Ext, Normal Tone, Sensation Intact, Cranial Nerves 3-12 NL Extremities No Edema, Normal Pulses Vascular Normal Pulses, Pulses Symmetrical Last 24 Hrs of Labs/Vito: No labs Diagnostic Data EKG Results Sinus rhythm, 73 QTC 415 No acute changes except for flattening of T waves in V2 CXR Results Chest x-ray at 10/02/17: New CT compatible right subclavian approach chest port with the tip of the catheter at the cavoatrial junction. No pneumothorax. Other Results CT-head and neck at 05/27/17: Left-sided lymphadenopathy PET scan at 08/06/17: IMPRESSION: 1. Intense abnormal FDG activity in the left lingual/palatine tonsillar region most consistent with a primary malignancy. 2. Extensive intensely FDG avid left cervical lymphadenopathy most consistent with malignant metastases. 3. Mild FDG activity in the right eustachian tube region with no corresponding CT abnormality. This is probably inflammatory or physiological in etiology. 4. A 0.2 cm left upper lobe pulmonary nodule is too small to be characterized on the FDG PET images. Follow-up of this with diagnostic CT imaging in approximately 6 months is recommended. 5. No additional abnormalities suspicious for other metastatic or malignant lesions are noted. Assessment/Plan Assessment: Mrs. Randall is a 57 yo lady with a hx. 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 #Dysphagia, Dysgeusia #Intractable nausea #Weight loss Plan: * Will admit the patient under observation to general medicine floor * We'll start her on a clear liquid diet for now but she will be nothing by mouth after midnight for G-tube placement tomorrow * NG tube to be placed at the night, with IV contrast is going to be sent from IR (I already spoke to the nurse at IR and she is going to send contrast to the floor) * Nothing by mouth after midnight * Will order EKG, Tigan for nausea * IV Protonix for acid reflux * Will continue Caphasol We'll hold on anticoagulation for now till G-tube placement tomorrow She is full code As Ranked By This Provider Problem List: 1. Squamous cell carcinoma 2. Nausea 3. Dysphagia Core Measures/Misc (04/14) Acute Coronary Syndrome ACS Diagnosis: No Congestive Heart Failure Congestive Heart Failure Diagnosis No Cerebrovascular Accident CVA/TIA Diagnosis: No VTE (View Protocol) VTE Risk Factors Acute Medical Illness No Mechanical VTE Prophylaxis d/t N/A MechProphylax Ordered No VTE Pharm Prophylaxis d/t Surgical Contraindication Sepsis (View protocol) Sepsis Present: No region most consistent with a primary malignancy. 2. Extensive intensely FDG avid left cervical lymphadenopathy most consistent with malignant metastases. 3. Mild FDG activity in the right eustachian tube region with no corresponding CT abnormality. This is probably inflammatory or physiological in etiology. 4. A 0.2 cm left upper lobe pulmonary nodule is too small to be characterized on the FDG PET images. Follow-up of this with diagnostic CT imaging in approximately 6 months is recommended. 5. No additional abnormalities suspicious for other metastatic or malignant lesions are noted. Assessment/Plan Assessment: Thank you FranciCandelaria Randall is a 57 yo lady with a hx. 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 #Dysphagia, Dysgeusia #Intractable nausea Plan: * Will admit the patient under observation to general medicine floor * We'll start her on a clear liquid diet for now but she will be nothing by mouth after midnight for G-tube placement tomorrow * NG tube to be placed at the night, with IV contrast is going to be sent from IR (I ordered spoke to the nurse at IR and she is going to send contrast to the floor) * Nothing by mouth after midnight * Will order EKG, Tigan for nausea * IV Protonix for acid reflux * Will continue Caphasol She is full code
[2017-11-04 15:53] VITALS: BP 106/78
[2017-11-04] MEDS ORDERED: CAPHOSOL900 ML PO (17:23)
[2017-11-04] MEDS ORDERED: PROCHLORPERAZIN10 MG PO (17:26)
[2017-11-04 22:28] VITALS: BP 100/56
--- NOTE | 2017-11-04 23:46 | Event Note ---
See Addendum Event Note Event Note: Called by residential sales rep to place NGT. No residents comfortable enough with their NGT placement skills to place. RN on floor attempted without success. Pt with hx oral cancer with progressive dysphagia, and was admitted early this afternoon for NGT placement to administer contrast for IR feeding tube placement tomorrow. Unclear as to why this NGT was not placed earlier in the day, as it has been approximately 8hr since admission H&P was completed. NGT easily placed via R nare. Gastric placement confirmed via ascultation of stomach, and return of gastric contents returned on wall suction. Pt tolerated procedure well. Recommend IV PPI as initial gastric contents were blood tinged.
--- NOTE | 2017-11-05 00:19 | RADIOLOGY REPORT ---
EXAMINATION: XR PORTABLE CHEST CLINICAL INFORMATION: Intractable vomiting COMPARISON: 10/02/2017 TECHNIQUE: Portable frontal view of the chest was obtained. FINDINGS: The enteric tube extends into the stomach. Right chest wall CT compatible port terminates near the cavoatrial junction. The lungs are well expanded. There is no focal consolidation, edema, or effusion. No pneumothorax. The cardiomediastinal silhouette is within normal limits. No acute osseous abnormality. IMPRESSION: No acute pulmonary findings.
[2017-11-05 06:51] VITALS: BP 120/80
--- NOTE | 2017-11-05 07:01 | PN- Housestaff ---
Bryon Dawkins MD,[facility] 11/05/17 0701: Subjective Follow-up For: PEG tube placement Subjective: patient is under observation in GM floor. Patient visited today, ill looking lady, was lying in bed, was alert and oriented. present at the bedside. No fever or chills, no shortness of breathing, no chest pain, no other events. NG tube in place. contrast administered for PEG tube placement today. IR recommended to start feeding after 24 hours. Had conversation with Nutrition regarding regimen for feeding. Pain regimen and antiemetics administered. Review of Systems Constitutional: Reports: see HPI. Objective Last 24 Hrs of Vital Signs/I&O Vital Signs Date Time Temp Pulse Resp B/P B/P Pulse O2 O2 Flow FiO2 Mean Ox Delivery Rate 11/06 0652 97.9 75 20 116/70 97 Room Air 11/05 2207 98.6 91 19 120/80 94 Room Air 11/05 1426 97.6 78 18 136/74 98 Room Air Intake & Output 11/06 0800 11/06 0000 11/05 1600 Intake Total 480 480 800 Output Total 300 Balance 480 480 500 Intake, IV 480 480 Intake, Oral 0 0 800 Output, Urine 300 Physical Exam General Appearance: Alert, Oriented X3, Cooperative, No Acute Distress Skin Temp/Moisture Exam: Warm/Dry Sepsis Skin Exam (color): Normal for Ethnicity HEENT: Atraumatic Cardiovascular: Regular Rate, Normal S1, Normal S2 Lungs: Clear to Auscultation, Normal Air Movement Abdomen: Soft, No Tenderness Current Medications: Current Medications Sig/Rey Start time Last Medication Dose Route Stop Time Status Admin Dextrose/Sodium 1,000 ML Q20H 11/05 1515 AC 11/06 Chloride IV 0546 Fentanyl Citrate 100 MCG .STK-MED ONE 11/05 0957 DC IM 11/05 0958 Glucagon 0 .STK-MED ONE 11/05 1128 DC .ROUTE Glucagon 0 .STK-MED ONE 11/05 1105 DC .ROUTE Glycerin 2 SPRAY Q2P PRN 11/04 1845 AC PO Hydromorphone HCl 0 .STK-MED ONE 11/05 1213 DC .ROUTE Ioversol 0 .STK-MED ONE 11/05 1030 DC IV Ketamine HCl 50 MG .STK-MED ONE 11/05 0957 DC IM 11/05 0958 Lidocaine 0 .STK-MED ONE 11/05 1030 DC .ROUTE Midazolam HCl 2 MG .STK-MED ONE 11/05 0957 DC IM 11/05 0958 Morphine Sulfate 1 MG Q4P PRN 11/05 1515 11/06 IV 0539 Ondansetron HCl 4 MG Q6P PRN 11/05 1515 11/06 IV 0145 Pantoprazole Sodium 40 MG DAILY 11/04 1955 AC IV Phenol 2 SPRAY Q2P PRN 11/04 2330 11/05 EXT 0133 Trimethobenzamide HCl 200 MG TID PRN 11/04 1645 11/05 IM 0443 Last 24 Hrs of Lab/Vito Results Last 24 Hrs of Labs/Mics: Laboratory Tests 11/05/17 0715: Anion Gap 16, Estimated GFR > 60, BUN/Creatinine Ratio 18.6, Total Beta HCG NEGATIVE, CBC w Diff NO MAN DIFF REQ, RBC 3.42 L, MCV 88.6, MCH 31.0, MCHC 35.0 , RDW 12.8, MPV 8.1, Gran % 60.0, Lymphocytes % 26.1, Monocytes % 12.7 H, Eosinophils % 0.9, Basophils % 0.3, Absolute Granulocytes 2.1, Absolute Lymphocytes 0.9 L, Absolute Monocytes 0.5, Absolute Eosinophils 0, Absolute Basophils 0 Assessment/Plan Assessment: Mrs. Randall is a 57 yo lady with a hx. 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 #Dysphagia, Dysgeusia #Intractable nausea #Weight loss Plan: - patient was placed under observation to general medicine floor - PEG tube placement today. IV contrast administered last night by NG tube - pain management with MS IV, antiemetic zofran - IV Protonix for acid reflux FC Problem List: 1. Nausea 2. Dysphagia Pain Ratin Pain Location: abdomen Pain Goal: Pain 4 or less Pain Plan: MS IV Tomorrow's Labs & Rationales: None Fiona Merida MD 11/05/17 1618: Attending Review Statement Attending Statement Attending MD Statement: examined this patient, discuss w/resident/PA/DATA WAREHOUSING MANAGER, agreed w/resident/PA/DATA WAREHOUSING MANAGER, discussed with family, reviewed EMR data (avail), discussed with nursing, discussed with case mgmt, amended to note Attending Assessment/Plan: Patient seen and examined. present at the bedside. She underwent placement of the PEG tube today by the interventional radiology service. Postoperatively the patient is markedly lethargic. She is unable to get out of bed without assistance. reports that this is not at baseline. He reports that she is generally able to mobilize with some assistance at home. She is complaining of nausea. In addition the radiology service has stated that the PEG tube should not be utilized for at least 24 hours. On examination she is lethargic but oriented 3. She is not in any respiratory distress. She complains of nausea but denies any vomiting. She does complain of some pain at the surgical site. Abdomen is nondistended, PEG tube is in place and intact surgical dressing around. Bowel sounds are normal. Problems: 1. Dysphagia secondary to esophageal cancer. 2. Placement of PEG tube today. 3. Deconditioning; likely secondary to effects of sedation for procedure. 4. Pain syndrome. Plan: -Patient is too lethargic to be discharged home safely today. -PEG feeding, be initiated tonight. Begin patient on D5 half normal saline at 60 cc an hour. -Pain control with morphine 1 mg IV every 4 hours as needed pain. -Antiemetic therapy with Zofran 4 mg IV every 6 hours as needed pain. -Physical therapy to mobilize patient. -Patient has been evaluated by her electrical hardware engineer. She will follow recommendations regarding tube feeding.
[2017-11-05 08:32] LABS: ABSOLUTE BASOPHIL COUNT 0 /CUMM (0.0-0.2); ABSOLUTE EOSINOPHIL COUNT 0 /CUMM (0.0-0.7); ABSOLUTE GRANULOCYTE CT 2.1 /CUMM (1.4-6.5); ABSOLUTE LYMPH COUNT 0.9 /CUMM (1.2-3.4); ABSOLUTE MONOCYTE COUNT 0.5 /CUMM (0.10-0.60); BASOPHIL % 0.3 % (0.0-2.0); EOSINOPHIL % 0.9 % (0-5); HEMATOCRIT 30.3 % (37-47); MEAN CORPUSCULAR VOLUME 88.6 FL (81.0-99.0); MEAN PLATELET VOLUME 8.1 FL (7.4-10.4); PLATELET COUNT 143 /CUMM (130-400); RBC DISTRIBUTION WIDTH 12.8 % (11.5-14.5); RED BLOOD CELL CT 3.42 /CUMM (4.20-5.40); WHITE BLOOD CELL COUNT 3.6 /CUMM (4.8-10.8)
--- NOTE | 2017-11-05 12:11 | ULTRASOUND REPORT ---
CLINICAL HISTORY: This patient is a 57 [id number]-xor female with head neck cancer, who presents to Interventional Radiology for placement of a gastrostomy tube. PROCEDURES: 1. Nasogastric tube position confirmation. 2. Gastric wall puncture and gastric opacification under fluoroscopy guidance. 3. Placement of a 16-Fr SAMUEL gastrostomy tube. 4. Postprocedure tube sinogram. 5. Limited LUQ abdominal ultrasound. PHYSICIANS: Dr. Apoorva Krishnamurthy (attending). MONITORING: The procedure was performed with local monitored anesthesia care. Refer to anesthesia notes for details. MEDICATIONS: 1. Lidocaine 1%, 20 mL SQ. 2. Glucagon Dose: 2 mg IV. CONTRAST: 10 mL Optiray 320 FLUOROSCOPY TIME: 2.3 minutes Total number of images: 3 still images, 9 fluoroscopic runs. COMPLICATIONS: None ESTIMATED BLOOD LOSS: <5 mL SPECIMENS: None IMPLANT: None SITE MARKING: As part of the preprocedure verification policy, a site marking procedure was initiated. Due to the nature the procedure, the insertion site could not be predetermined thus invoking the policy of exemption to site laterality and marking. Insertion site marking was performed in the procedure room in conjunction with imaging confirmation. PROCEDURE NOTE: Informed consent was obtained from the patient prior to the procedure. During this process, the procedure and potential alternatives were explained along with the intended outcome and benefits. The risks of the procedure, including the possibility of an unsuccessful procedure, as well as the risk of not doing the procedure, were discussed. The patient was given the opportunity to ask questions regarding the procedure and appeared competent to make decisions. A signed consent form documenting this discussion was placed in the medical record. A time-out procedure was performed. The patient was placed supine on the fluoroscopy table. Using real-time ultrasound-guidance, the left liver edge was localized before the patient was prepped. The abdomen was prepped and draped in usual sterile fashion. All elements of maximal sterile barrier technique followed including use of cap, mask, sterile gown, sterile gloves, a sterile full body drape and hand hygiene. Also followed skin preparation with 2% chlorhexidine for cutaneous antisepsis, and sterile ultrasound preparation with sterile gel and probe cover when applicable. 20 mL of 1% lidocaine was used to obtain local anesthesia of the skin and deeper tissues. The region of the stomach was marked under fluoroscopy. Air was then insufflated into the stomach from the nasogastric tube while observing gastric distention under intermittent fluoroscopy. Once the stomach was of adequate distension, a safe approach was determined and marked. Lidocaine local anesthetic was administered. Using a lateral view, a T tach needle was advanced to the anterior stomach wall, which was tented and then traversed. Injection of a small amount of contrast demonstrated the needle tip to be within stomach lumen. A wire pusher advanced the T tack. The needle was removed and the T tack was secured. A total of 3 T tacks were placed and secured. The site at the middle of the T tacks was chosen to place the gastrostomy tube. A needle was advanced and access to the stomach was confirmed under fluoroscopic-guidance. A 0.035 in Amplatz super stiff wire was advanced with ease into the stomach. The tract was then dilated using a series of dilators up to 20-Fr and then a 20-Fr peel-away sheath was placed. The dilator and wire were removed. A 16-Fr gastrostomy tube was advanced with ease through the peel-away sheath, and the peel-away sheath was removed. The balloon was inflated with 5 mL sterile water and the collar was advanced to the skin. Contrast injection confirmed position within the stomach lumen. The patient tolerated the procedure well. FINDINGS: 1. Nasogastric tube position confirmation. 2. Patent stomach with favorable anatomy for percutaneous placement of gastrostomy tube. 3. Successful placement of a 16-Fr SAMUEL gastrostomy tube. IMPRESSION: Successful placement of a gastrostomy tube. PLAN: 1. The patient was stable after the procedure and was transferred to the interventional recovery area. The patient will be discharged home when stable by sedation protocol. 2. The gastrostomy tube should NOT be accessed for at least 24 hours. At that point, a 100 mL water bolus may be given through the tube. If the patient tolerates this bolus, then tube feedings may commence. 3. The balloon port should never be accessed. 4. The T tacks securing suture will dissolve in 2-3 weeks, and the T tack buttons will fall off on their own.
[2017-11-05 14:26] VITALS: BP 136/74
[2017-11-05 22:07] VITALS: BP 120/80
[2017-11-06 06:52] VITALS: BP 116/70
--- NOTE | 2017-11-06 06:52 | PN- Housestaff ---
Bryon Dawkins MD,[facility] 11/06/17 0652: Subjective Follow-up For: SCC of head and neck PEG tube placement intractable nause and vomiting Subjective: Patient visited today, was lying in bed comfortably in no acute distress, was alert and oriented. No fever or chills, no shortness of breathing, no chest pain, no other events. PEG tube placed yesterdya with IR. Water flushes were restarted after 24 hours. Although continued to throw up clear fluid (suggesting saliva was (. The amount of residual was minimal which was green color. Considering intractable nausea it was decided to admit patient to hospital. patient will go for radiotherapy this afternoon. Review of Systems Constitutional: Reports: see HPI. Objective Last 24 Hrs of Vital Signs/I&O Vital Signs Date Time Temp Pulse Resp B/P B/P Pulse O2 O2 Flow FiO2 Mean Ox Delivery Rate 11/06 1631 98.2 74 20 122/70 97 Room Air 11/06 1404 98.5 73 18 118/82 96 11/06 0652 97.9 75 20 116/70 97 Room Air 11/05 2207 98.6 91 19 120/80 94 Room Air Intake & Output 11/06 1600 11/06 0800 11/06 0000 Intake Total 480 480 480 Output Total Balance 480 480 480 Intake, IV 480 480 480 Intake, Oral 0 0 Physical Exam General Appearance: Alert, Oriented X3, Cooperative, No Acute Distress Skin: No Significant Lesion Skin Temp/Moisture Exam: Warm/Dry Sepsis Skin Exam (color): Normal for Ethnicity HEENT: Atraumatic, EOMI Neck: scar surgery Cardiovascular: Normal S1, Normal S2 Lungs: Clear to Auscultation Abdomen: peg tube in place, no tenderness Current Medications: Current Medications Sig/Rey Start time Last Medication Dose Route Stop Time Status Admin Dextrose/Sodium 1,000 ML Q20H 11/05 151 AC 11/06 Chloride IV 0546 Glycerin 2 SPRAY Q2P PRN 11/04 1845 AC PO Morphine Sulfate 1 MG Q4P PRN 11/05 1515 AC 11/06 IV 1119 Ondansetron HCl 4 MG STAT STA 11/06 1324 DC 11/06 IV 11/06 1325 1345 Ondansetron HCl 4 MG Q6P PRN 11/05 1515 11/06 IV 1118 Pantoprazole Sodium 40 MG DAILY 11/04 195 11/06 IV 0852 Phenol 2 SPRAY Q2P PRN 11/04 2330 11/05 EXT 0133 Trimethobenzamide HCl 200 MG TID PRN 11/04 1645 11/05 IM 0443 Assessment/Plan Assessment: Mrs. Randall is a 57 yo lady with a hx. 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 #Dysphagia, Dysgeusia #Intractable nausea #Weight loss Plan: - admit to general medicine floor - PEG tube placement yesterday - pain management with MS IV, antiemetic zofran - IV Protonix for acid reflux - radiotherapy today FC Problem List: 1. Squamous cell carcinoma 2. Nausea 3. Dysphagia 4. Status post insertion of percutaneous endoscopic gastrostomy (PEG) tube Pain Ratin Pain Location: Continue current plan Pain Goal: Pain 4 or less Pain Plan: continue current plan Tomorrow's Labs & Rationales: None Fuad DOMINIQUE,Fiona 11/06/17 1204: Attending MD Review Statement Attending Statement Attending MD Statement: examined this patient, discuss w/resident/PA/OPTICAL EFFECTS LAYOUT PERSON, agreed w/resident/PA/OPTICAL EFFECTS LAYOUT PERSON, discussed with family, reviewed EMR data (avail), discussed with nursing, discussed with case mgmt, amended to note Attending Assessment/Plan: Patient seen and examined. She appears much more comfortable today. She feels much better. Continues to report some pain at the surgical site but admits that this is improved compared to yesterday. She looks forward to going home today. She is scheduled to undergo radiation therapy this afternoon. She will be discharged this morning and can go over for her radiation therapy later on this afternoon. She will follow-up in the cancer center as an outpatient. She will be provided instructions on how to manage a PEG tube and arrangements have been made by her executive receptionist regarding her nutrition regimen. She is medically stable to be discharged today.
--- NOTE | 2017-11-06 09:19 | Patient Discharge Instructions ---
Discharge Instructions General Discharge Information You were seen/treated for: PEG tube palcement You had these procedures: PEG tube placement: 1. Nasogastric tube position confirmation. 2. Gastric wall puncture and gastric opacification under fluoroscopy guidance. 3. Placement of a 16-Fr SAMUEL gastrostomy tube. 4. Postprocedure tube sinogram. 5. Limited LUQ abdominal ultrasound. Watch for these problems: severe pain, nausea, vomiting, dizziness, shortness of breathing, cough, fever or worsening of any other symptoms Special Instructions: Please follow with the PCP within one of discharge. Please follow with your oncologist today to continue radiation and chemotherapy. Please follow up with your intervention radiologist present for months of discharge for evaluation of the PEG tube. Please continue with PEG tube feeding as tolerated and consult your supervisor nutritional yeast at cancer center. Diet Continue normal diet: No (as instructed, PEG feeding) Recommended Diet: as instructed Activity Full Activity/No Limits: No Activity Self Limited: Yes Additional ACTIVITY Info: You can return back to work on Saturday 11/11 after re-evaluation by PCP Acute Coronary Syndrome Inclusion Criteria At DC or during hospital stay patient has or had the following: ACS DIAGNOSIS No Discharge Core Measures Meds if any: Prescribed or Continued at Discharge Meds if any: NOT Prescribed or Continued at Discharge Congestive Heart Failure Inclusion Criteria At DC or during hospital stay patient has or had the following: CHF DIAGNOSIS No Discharge Core Measures Meds if any: Prescribed or Continued at Discharge Meds if any: NOT Prescribed or Continued at Discharge Cerebrovascular accident Inclusion Criteria At DC or during hospital stay patient has or had the following: CVA/TIA Diagnosis No Discharge Core Measures Meds if any: Prescribed or Continued at Discharge Meds if any: NOT Prescribed or Continued at Discharge Venous thromboembolism Inclusion Criteria VTE Diagnosis No VTE Type NONE VTE Confirmed by (Test) NONE Discharge Core Measures - Per Current guidelines, there needs to be overlap - treatment for the first 5 days of Warfarin therapy. - If discharged on Warfarin prior to 5 days of - overlap therapy, the patient will need to be - assessed for post discharge needs including - *Post discharge parental anticoagulation - *Warfarin and/or parental anticoagulation education - *Follow up date to check INR post discharge At least 5 days overlap therapy as Inpatient Yes Meds if any: Prescribed or Continued at Discharge Note: Overlap Therapy is Warfarin and Anticoagulant Meds if any: NOT Prescribed or Continued at Discharge
[2017-11-06] MEDS ORDERED: PERCOCET 5-3251 EACH PO (11:22)
[2017-11-06] MEDS ORDERED: ZOFRAN4 M2 PO ×2 (11:25→11:26)
[2017-11-06 14:04] VITALS: BP 118/82
[2017-11-06 16:31] VITALS: BP 122/70
[2017-11-06 19:39] VITALS: BP 124/76
[2017-11-07 06:27] VITALS: BP 130/80
--- NOTE | 2017-11-07 06:42 | PN- Housestaff ---
Bryon Dawkins MD,[facility] 11/07/17 0642: Subjective Follow-up For: SCC of head and neck PEG tube placement intractable nause and vomiting Subjective: Patient visited today, was lying in bed comfortably in no acute distress, was alert and oriented. Reported improved nausea. No fever or chills, no shortness of breathing, no chest pain, no other events. Patient tolerated water flush and Jevity infusion through PEG tube. patient had radiotherapy, with stablization patient was discharged. Review of Systems Constitutional: Reports: see HPI. Objective Last 24 Hrs of Vital Signs/I&O Vital Signs Date Time Temp Pulse Resp B/P B/P Pulse O2 O2 Flow FiO2 Mean Ox Delivery Rate 11/07 0627 99.0 76 16 130/80 97 Room Air 11/06 1939 98.6 70 16 124/76 96 Room Air 11/06 1631 98.2 74 20 122/70 97 Room Air 11/06 1404 98.5 73 18 118/82 96 Intake & Output 11/07 1600 11/07 0800 11/07 0000 Intake Total 480 480 Output Total Balance 480 480 Intake, IV 480 480 Intake, Oral 0 0 Patient 152 lb Weight Physical Exam General Appearance: Alert, Oriented X3, Cooperative, No Acute Distress Skin Temp/Moisture Exam: Warm/Dry Sepsis Skin Exam (color): Normal for Ethnicity HEENT: Atraumatic, EOMI Cardiovascular: Normal S1, Normal S2 Lungs: Normal Air Movement Abdomen: Soft, No Tenderness, PEG tube in place, dressing in place Neurological: Normal Speech Extremities: No Edema Current Medications: Current Medications Sig/Rey Start time Last Medication Dose Route Stop Time Status Admin Dextrose/Sodium 1,000 ML Q20H 11/05 1515 DC 11/07 Chloride IV 0539 Glycerin 2 SPRAY Q2P PRN 11/04 1845 AC PO Morphine Sulfate 1 MG Q4P PRN 11/05 1515 AC 11/06 IV 1119 Ondansetron HCl 4 MG STAT STA 11/06 1324 DC 11/06 IV 11/06 1325 1345 Ondansetron HCl 4 MG Q6P PRN 11/05 1515 AC 11/07 IV 1258 Pantoprazole Sodium 40 MG DAILY 11/04 1955 AC 11/07 IV 0830 Phenol 2 SPRAY Q2P PRN 11/04 2330 AC 11/05 EXT 0133 Trimethobenzamide HCl 200 MG TID PRN 11/04 1645 AC 11/05 IM 0443 Assessment/Plan Assessment: Mrs. Randall is a 57 yo lady with a hx. of recently diagnosed SCC of head and neck admitted for G-tube placement. Patient was intially placed under observation in GM floor, but with continuation of nausea and vomiting was amidtted to the floor for close observation and rule out any related complications. 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 #Dysphagia, Dysgeusia #Intractable nausea #Weight loss PEG tube was placed under imaging guidance by interventional radiologist. Patient continued to have nausea and vomiting. antiemetics were administered. Pain management was done with MS> Radiotherapy was continued while patient was in hospital. IV protonix was initially administered. Water and Jevity were infused through PEG tube to assure patient was tolerating. With stablization patient was discharged with recommendatins to follow in outpatient. Problem List: 1. Status post insertion of percutaneous endoscopic gastrostomy (PEG) tube 2. Nausea 3. Headache Pain Ratin (at time of interview) Pain Location: abdominal wall, not at time of interview Pain Goal: Pain 4 or less Pain Plan: Continue current plan Tomorrow's Labs & Rationales: None Fuad DOMINIQUE,Fiona 11/07/17 1333: Attending MD Review Statement Attending Statement Attending MD Statement: examined this patient, discuss w/resident/PA/GAS USAGE METER CLERK, agreed w/resident/PA/GAS USAGE METER CLERK, discussed with family, reviewed EMR data (avail), discussed with nursing, discussed with case mgmt, amended to note Attending Assessment/Plan: Patient seen and examined. Reports feeling much better today. Reports that she still has nausea on and off but this is much improved. She reports better control of her nausea with Zofran compared to what she was using at home. She appears more motivated to be discharged today compared to yesterday. Her also appears more motivated to have the patient discharged today rather than yesterday. She did undergo her radiation therapy yesterday and is scheduled to undergo radiation therapy today as well. Following this she will be discharged home and will continue care in the cancer center.
--- NOTE | 2017-11-07 15:34 | Discharge Summary ---
Hospital Course Allergies: Coded Allergies: Penicillins (PER PT MD CRAFT ADDED PCN 10/01/17) diphenhydramine (From BENADRYL) (BODY ACHES 10/01/17) doxycycline (ANAPHYLAXIS 10/01/17) guaifenesin (From ROBITUSSIN) (BODY ACHES 10/01/17) oxacillin (ANAPHYLACTIC 10/01/17) Discharge Instructions Medications at Discharge Discharge Medications: Continue taking these medications: Lansoprazole (Lansoprazole) 30 MG CAPSULE.DR 1 Capsule ORAL DAILY Comments: NOT GIVEN IN THE HOSPITAL Saliva Substitute Combo No.2 (Caphosol) 900 ML SOLUTION 900 Milliliters ORAL DAILY as needed for ITCHING Qty = 30 Comments: NOT GIVEN IN THE HOSPITAL Prochlorperazine Maleate (Prochlorperazine Maleate) 10 MG TABLET 1 Tablet ORAL EVERY SIX HOURS Qty = 30 Comments: NOT GIVEN IN THE HOSPITAL Oxycodone HCl/Acetaminophen (Percocet 5-325 MG Tablet) 5 MG-325 MG TABLET 1 Tablet ORAL THREE TIMES DAILY Comments: NOT GIVEN IN THE HOSPITAL Start taking the following new medications: Ondansetron HCl (Zofran) 4 MG TABLET 1 Tablet ORAL THREE TIMES DAILY Qty = 30 Refills = 1 Instructions: Please take 1 tab TID for the next 7 days, you can then take it as needed. Comments: GIVEN VIA IV ADMINISTRATION IN HOSPITAL Last Taken: 11/07/17 Time: 1300 PM
== END 2017-11-07 14:16 | DRG 148 ==
LOC: DELPENDDIS → 2NA 07:57 → ENPENDDIS 11-06 10:51 → 2NA 11-06 15:15 → ENPENDDIS 11-07 13:06 → ENTRNSPT 11-07 13:51 → EDTRNSPTSTS 11-07 14:06 → EDTRNSPT 11-07 14:06 → 2NA 11-07 14:16 → CMPTRNSPT 11-07 14:25
PROVIDERS: Student in an Organized Health Care Education/Training Program
PROC: 3E0G76Z Introduction of Nutritional Substance into Upper GI, Via Natural or Artificial Opening (ICD-10-PCS; principal; 2017-11-05)
PROC: 0DH63UZ Insertion of Feeding Device into Stomach, Percutaneous Approach (ICD-10-PCS; principal; 2017-11-05)
DX: C76.0 Malignant neoplasm of head, face and neck (principal); R13.10 Dysphagia, unspecified; Z46.59 Encounter for fitting and adjustment of other gastrointestinal appliance and device; R11.0 Nausea; R63.4 Abnormal weight loss; Z68.24 Body mass index [BMI] 24.0-24.9, adult; K21.9 Gastro-esophageal reflux disease without esophagitis; M19.90 Unspecified osteoarthritis, unspecified site; Z87.891 Personal history of nicotine dependence; Z90.49 Acquired absence of other specified parts of digestive tract; Z88.1 Allergy status to other antibiotic agents; Z88.8 Allergy status to other drugs, medicaments and biological substances
CPT/HCPCS: 2NASP; 36592; 71045; 77387-TC; 77412-TC; 82436; 93005; 93010; C1769; J1610; J2405; J3250; J7042; Q9967

== ENCOUNTER 2017-11-20 15:13 | Inpatient (IN) | payer OTHER ==
[~2017-11-20] VITALS: Ht 162.6 cm; Wt 67.7 kg
[~2017-11-20 15:13] MED LIST changes: +CAPHOSOL900 ML PO; +PROCHLORPERAZIN10 MG PO; +ZOFRAN4 M2 PO
--- NOTE | 2017-11-20 15:31 | ED GENERAL ADULT ---
See Addendum History of Present Illness General Chief Complaint: General Adult Stated Complaint: SENT BY [facility] FOR NAUSEA/DEHYDRATION Source: patient Exam Limitations: no limitations Vital Signs & Intake/Output Vital Signs & Intake/Output Vital Signs Date Time Temp Pulse Resp B/P B/P Pulse O2 O2 Flow FiO2 Mean Ox Delivery Rate 11/20 1756 98.0 77 18 113/65 100 Room Air 11/20 1756 Room Air 11/20 1600 99/60 11/20 1522 98.6 83 18 66/67 98 Room Air Allergies Coded Allergies: Penicillins (PER PT MD CRAFT ADDED PCN 10/01/17) diphenhydramine (From BENADRYL) (BODY ACHES 10/01/17) doxycycline (ANAPHYLAXIS 10/01/17) guaifenesin (From ROBITUSSIN) (BODY ACHES 10/01/17) oxacillin (ANAPHYLACTIC 10/01/17) Reconcile Medications Lansoprazole 30 MG CAPSULE.DR 1 CAP PO DAILY REFLUX (Reported) Ondansetron HCl (Zofran) 4 MG TABLET 1 TAB PO TID NAUSEA Please take 1 tab TID for the next 7 days, you can then take it as needed. Oxycodone HCl/Acetaminophen (Percocet 5-325 MG Tablet) 5 MG-325 MG TABLET 1 TAB PO TID PAIN CONTROL (Reported) Prochlorperazine Maleate 10 MG TABLET 1 TAB PO Q6 NAUSEA (Reported) Saliva Substitute Combo No.2 (Caphosol) 900 ML SOLUTION 900 ML PO DAILY PRN ITCHING (Reported) Triage Note: 57 YO FEMALE SENT TO ER BY [facility] FOR +NAUSEA/VOMTIING. PT BP 99/67 IN TRIAGE. STATES S/S HAS BEEN GOING ON FOR MONTHS, [facility] HAS BEEN RECIEVING CHEMO AND RADIATION. [facility] WENT TODAY FOR RADIATION BUT WAS VOMTINIG SO THEY SENT HER HERE. PT HAS FEEDING TUBE AND PORT. [facility] HASNT BEEN ABLE TO USE FEEDING TUBE TODAY D/T NAUSEA. Triage Nurses Notes Reviewed? 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 She is failing multiple by mouth antiemetics. Her systolic blood pressure was in the 60s. She received IV fluids in the ED and IV antiemetics. No fever. She has a right anterior chest wall Port-A-Cath. Past History Travel History Traveled to [place] past 21 day No Medical History Any Pertinent Medical History? 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 No Review of Systems Review of Systems Constitutional: Denies: fever. EENTM: Reports: see HPI. Respiratory: Denies: short of breath. Cardiovascular: Denies: chest pain. GI: Reports: nausea, vomiting. Denies: abdominal pain. Genitourinary: Reports: no symptoms. Musculoskeletal: Reports: no symptoms. Skin: Reports: no symptoms. Neurological/Psychological: Reports: no symptoms. Hematologic/Endocrine: Reports: no symptoms. Immunologic/Allergic: Reports: no symptoms. Physical Exam Physical Exam General Appearance: alert, awake, anxious, moderate distress Head: atraumatic, dry mucous membranes Eyes: Bilateral: normal appearance, PERRL, EOMI. Ears, Nose, Throat: dry mucous membranes Neck: supple Respiratory: chest non-tender, no respiratory distress Cardiovascular: tachycardia Peripheral Pulses: 2+ radial (R), 2+ radial (L) Gastrointestinal: non-tender Back: decreased range of motion Extremities: no edema Neurologic/Psych: no motor/sensory deficits, awake, alert, oriented x 3 Skin: intact, normal color, warm/dry Core Measures ACS in differential dx? No CVA/TIA Diagnosis: No Sepsis Present: No Sepsis Focused Exam Completed? No Progress Differential Diagnoses I considered the following diagnoses in my evaluation of the patient: [ Electrolyte derangement, dehydration, sepsis] Plan of Care: Orders Procedure Date/time Status Clear Liquid Diet 11/21 B Active Pathway - chart 11/21 2003 Active House Staff 11/21 2003 Active Patient Data 11/21 2003 Active Code Status 11/21 2003 Active BLOOD CULTURE 11/20 1958 Active Patient Data 11/20 1956 Active ED Holding Orders 11/20 1949 Active Admit to inpatient 11/20 1949 Active Vital Signs 11/20 1949 Active Code Status 11/20 1949 Complete Intake & Output 11/20 163 Active BLOOD CULTURE 11/20 161 Active COMPREHENSIVE METABOLIC PANEL 11/20 161 Complete CBC WITHOUT DIFFERENTIAL 11/20 161 Complete VTE Mechanical Prophylaxis 11/20 UNK Active Current Medications Sig/Rey Start time Last Medication Dose Stop Time Status Admin Enoxaparin Sodium 40 MG 2100 11/20 2099 AC (Lovenox) Ibuprofen 600 MG Q6 PRN 11/20 2014 AC (Motrin) Laboratory Tests 11/20/17 1600: Anion Gap 15, Estimated GFR > 60, BUN/Creatinine Ratio 21.4, Glucose 84, Calcium 9.9, Total Bilirubin 0.6, AST 38 H, ALT 41, Alkaline Phosphatase 50, Total Protein 6.9, Albumin 4.0, Globulin 2.9, Albumin/Globulin Ratio 1.4, CBC w Diff NO MAN DIFF REQ, RBC 3.43 L, MCV 88.6, MCH 31.8 H, MCHC 35.8, RDW 14.8 H, MPV 8.0, Gran % 74.9, Lymphocytes % 17.0 L, Monocytes % 6.9, Eosinophils % 1.0, Basophils % 0.2, Absolute Granulocytes 2.1, Absolute Lymphocytes 0.5 L, Absolute Monocytes 0.2, Absolute Eosinophils 0, Absolute Basophils 0 Microbiology 11/20 2000 BLOOD: Blood Culture - CAN Cancelled: DUP 11/20 194 BLOOD: Blood Culture - RECD 11/20 161 BLOOD: Blood Culture - CAN Cancelled: DUP 11/20 1600 BLOOD: Blood Culture - RECD Initial ED EKG: none Departure Departure Disposition: STILL A PATIENT Condition: Stable Clinical Impression Primary Impression: Intractable vomiting Referrals: Shivam DOMINIQUE,Arcadio Yen (PCP/Family) Departure Forms: Customer Survey General Discharge Information Admission Note Spoke With: Emeli Cadet MD Documentation of Exam: Documentation of any treatments & extenuating circumstances including Concerns Regarding Discharge (functional status, medication knowledge or non-compliance, living conditions, etc.) that warrant an admission rather than observation: [The patient needs admission for IV fluids, IV antiemetics, and further evaluation] Critical Care Note Critical Care Note Critical Care Time: 30-74 min
[2017-11-20 17:02] LABS: ABSOLUTE BASOPHIL COUNT 0 /CUMM (0.0-0.2); ABSOLUTE EOSINOPHIL COUNT 0 /CUMM (0.0-0.7); ABSOLUTE GRANULOCYTE CT 2.1 /CUMM (1.4-6.5); ABSOLUTE LYMPH COUNT 0.5 /CUMM (1.2-3.4); ABSOLUTE MONOCYTE COUNT 0.2 /CUMM (0.10-0.60); BASOPHIL % 0.2 % (0.0-2.0); GRANULOCYTE % 74.9 % (42.2-75.2); HEMATOCRIT 30.4 % (37-47); MEAN CORPUSCULAR HGB 31.8 PG (27.0-31.0); MEAN CORPUSCULAR HGB CONC 35.8 G/DL (33.0-37.0); MEAN CORPUSCULAR VOLUME 88.6 FL (81.0-99.0); PLATELET COUNT 145 /CUMM (130-400); RBC DISTRIBUTION WIDTH 14.8 % (11.5-14.5); RED BLOOD CELL CT 3.43 /CUMM (4.20-5.40); WHITE BLOOD CELL COUNT 2.8 /CUMM (4.8-10.8)
--- NOTE | 2017-11-20 19:58 | History & Physical ---
Kika Carlson 11/[birth year]171955: General Information and HPI MD Statement: I have seen and personally examined MONICA ALVAREZ and documented this H&P. The patient is a 57 year old F who presented with a patient stated chief complaint of []. Source of Information: patient, old records Exam Limitations: no limitations History of Present Illness: February 57-year-old female was 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 She was setting by the [facility] [place] for nausea vomiting status post chemo and radiation. She received further chemotherapy a week ago, and radiation therapy last Saturday, however did not follow with Dr. Watts onto today. Patient had ongoing nausea vomiting associated with chemotherapy/radiation therapy 4 months. She had a feeding tube and port, both appeared to be clear in dressing, but she stated that she has not been using the feeding tube today due to nausea. At home she was mostly on clear liquid diet to her tolerance, in addition to the PEG tube feeding. Patient denied fever/cough/SOB/Chest Pain/Palpitation/Abdominal pain, bowel movement/urinary abnormality, or other skin/musculoskeletal/neurological disorders. Allergies/Medications Allergies: Coded Allergies: Penicillins (PER PT MD CRAFT ADDED PCN 10/01/17) diphenhydramine (From BENADRYL) (BODY ACHES 10/01/17) doxycycline (ANAPHYLAXIS 10/01/17) guaifenesin (From ROBITUSSIN) (BODY ACHES 10/01/17) oxacillin (ANAPHYLACTIC 10/01/17) Home Med list Lansoprazole 30 MG CAPSULE.DR 1 CAP PO DAILY REFLUX (Reported) Ondansetron HCl (Zofran) 4 MG TABLET 1 TAB PO TID NAUSEA Please take 1 tab TID for the next 7 days, you can then take it as needed. 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 Ambulation: independent, cane, walker, non-ambulatory Review of Systems Review of Systems Constitutional: Reports: see HPI. Exam & Diagnostic Data Last 24 Hrs of Vital Signs/I&O Vital Signs Date Time Temp Pulse Resp B/P B/P Pulse O2 O2 Flow FiO2 Mean Ox Delivery Rate 11/20 175 98.0 77 18 113/65 100 Room Air 11/20 1756 Room Air 11/20 1600 99/60 11/20 1522 98.6 83 18 66/67 98 Room Air Intake & Output 11/20 1600 11/20 0800 11/20 0000 Intake Total Output Total Balance Patient 64.864 kg Weight Weight Reported by Patient Measurement Method Physical Exam General Appearance Alert, Oriented X3, Cooperative, No Acute Distress Skin No Rashes, No Breakdown HEENT Atraumatic, Oral thrush Neck Supple, Left side of neck s/p lymph node resection site with some post-op skin changes Cardiovascular Regular Rate Lungs Clear to Auscultation, Normal Air Movement, Chemo port on R upper chest Abdomen Soft, No Tenderness, PEG tube in place, clean dressing, not in use Neurological Normal Speech, Strength at 5/5 X4 Ext Extremities No Edema, Normal Pulses Last 24 Hrs of Labs/Vito: Laboratory Tests 11/20/17 1600: Anion Gap 15, Estimated GFR > 60, BUN/Creatinine Ratio 21.4, Glucose 84, Calcium 9.9, Total Bilirubin 0.6, AST 38 H, ALT 41, Alkaline Phosphatase 50, Total Protein 6.9, Albumin 4.0, Globulin 2.9, Albumin/Globulin Ratio 1.4, CBC w Diff NO MAN DIFF REQ, RBC 3.43 L, MCV 88.6, MCH 31.8 H, MCHC 35.8, RDW 14.8 H, MPV 8.0, Gran % 74.9, Lymphocytes % 17.0 L, Monocytes % 6.9, Eosinophils % 1.0, Basophils % 0.2, Absolute Granulocytes 2.1, Absolute Lymphocytes 0.5 L, Absolute Monocytes 0.2, Absolute Eosinophils 0, Absolute Basophils 0 Microbiology 11/20 2000 BLOOD: Blood Culture - ORD 11/20 1958 BLOOD: Blood Culture - ORD 11/20 161 BLOOD: Blood Culture - ORD 11/20 1600 BLOOD: Blood Culture - RECD Assessment/Plan Assessment: February 57-year-old female was 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 She was setting by the [facility] for nausea vomiting status post chemo and radiation. She received further chemotherapy a week ago, and radiation therapy last Saturday, however did not follow with Dr. Watts onto today. Patient had ongoing nausea vomiting associated with chemotherapy/radiation therapy 4 months. She had a feeding tube and port, both appeared to be clear in dressing, but she stated that she has not been using the feeding tube today due to nausea. At home she was mostly on clear liquid diet to her tolerance, in addition to the PEG tube feeding. Patient denied fever/cough/SOB/Chest Pain/Palpitation/Abdominal pain, bowel movement/urinary abnormality, or other skin/musculoskeletal/neurological disorders. On admission, Vitals: Stable with BP 90/60, increased to 115/65 -CBC: WBC 2.8, HH 10.9/30.4 -BMP: unremarkable -Interventions in ER: Normal saline bolus 1 L, Phenergan IV 1 Problem list & Assessment: #Nausea/vomiting associated with chemotherapy: Patient's nausea vomiting has been going on chronically ever since starting his chemotherapy/radiation. Currently we are managing fluid status to keep patient stable. 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 Patient will not likely to have any neurological intervention tomorrow. Hospital Course: - Admit to general medicine floor -Continue maintenance fluids including D5 W half-normal saline -1 L bolus 1 as patient's blood pressure dropped down to 105/55 on admission. -Antiemetics as needed -Continue fluconazole for the patient's oral thrush. -Continue PPI -Pending oncology consult by -Pending nutritional consult for Jevity tube feeding. DVT prophylaxis Lovenox + ALPS Clear Liquid Diet w/ patient's request + Tube feeding in the AM Full Code As Ranked By This Provider Problem List: 1. Neck mass 2. Lymphadenopathy, anterior cervical 3. Squamous cell carcinoma Core Measures/Misc (04/14) Acute Coronary Syndrome ACS Diagnosis: No Congestive Heart Failure Congestive Heart Failure Diagnosis No Cerebrovascular Accident CVA/TIA Diagnosis: No VTE (View Protocol) VTE Risk Factors Cancer/chemo/othr therapy No Mechanical VTE Prophylaxis d/t N/A MechProphylax Ordered No VTE Pharm Prophylaxis d/t NA PharmProphylax ordered Sepsis (View protocol) Sepsis Present: No Rey Castro 11/20/17 2141: Resident Review Statement Resident Statement: examined this patient, discussed with spring intern Other Findings: Patient is a 57-year-old female with past medical history of SCC of head and neck stage I status post lymph node dissection(08/22/2017) who was sent to the ER from the [facility] for nausea and vomiting which has been going on for the past 2 weeks. She is currently on chemotherapy and radiation with Dr. Zazueta and Dr. Goodrich. Her last chemotherapy was 2 weeks ago. The last radiation was 1 week ago. Since the last chemotherapy patient hasn't been able to eat or drink secondary to the nausea. Patient tolerates a liquid diet at home and uses the G -tube for Jevity. However due to significant ongoing nausea and vomiting she hasn't been able to use it today. She denies any fevers, chills, chest pain, shortness of breath, urinary or bowel symptoms. No sick contacts. She is due for chemotherapy tomorrow. Her labs were significant for a white count of 2.8, H&H 10.9/30.4, chemistries were normal. In the ED she was given 1 L bolus and Phenergan for nausea. Physical exam General: Awake, alert, oriented, nauseus HEENT: PERRLA, EOMI, scar of neck dissection seen on the left CVS: S1-S2 heard, no murmurs Chest: Clear breath sounds, Chemo-Port on the right chest wall, appears clean Abdomen: G-tube to the right, bowel sounds positive Extremities: No edema Assessment #Stage I SCC of the head and neck S/P lymph node dissection of the left neck on 08/22/2017 #Intractable nausea and vomiting related to chemotherapy/radiation #Oral thrush #Weight loss Plan * Admit to [facility] * We will give another bolus of 1 L normal saline. Maintenance with D5 half normal saline at 100 cc an hour * Continue Zofran/Phenergan for nausea * Continue transdermal nausea patch(should come off tomorrow) * Patient was prescribed fluconazole for thrush, continue it(5 days left) * Patient does not want nystatin swish and swallow because of its taste, was taking alternative oral mouthwash at home but not recall the name/please confirm * Patient wants to eat, we'll start full liquid diet(no Jell-O's) * Courtesy call to Dr. Zazueta as patient was scheduled for a chemotherapy session tomorrow. * Nutritional consult in a.m. to restart Jevity through G-tube * DVT prophylaxis subcutaneous Lovenox * Full code ChichiEmeli russo 11/20/17 2345: Attending MD Review Statement Attending Statement Attending MD Statement: examined this patient, discuss w/resident/PA/LEGAL RESEARCH ANALYST, agreed w/resident/PA/LEGAL RESEARCH ANALYST, reviewed EMR data (avail), reviewed images, amended to note Attending Assessment/Plan: CC: Nausea vomiting PMH: Squamous cell carcinoma of head and neck S/P surgery (tongue resection, tonsillectomy, selective neck dissection) on 08/22/2017, currently on chemotherapy since 10/11/2017 and radiation since 10/14/2017. Chemotherapy related nausea vomiting Patient has been having chemotherapy related nausea vomiting since the chemotherapy was started in September, on and off, more severe after chemotherapy, tried several different medications at home without much relief. Recently she developed oral thrush for which initially nystatin swish and swallow was tried but then was discontinued because of the taste and she is currently on fluconazole. Because of the strange position and the mouth, patient feels extremely nauseous and has been throwing up. She is tolerating clear liquids at home and using her PEG tube for nutrition. Currently she is using Sancuso patch for nausea vomiting, additionally small doses of Ativan helped her. Denies any fever, chills at home, no skin rashes (except radiation related neck rash), no urinary frequency burning or irritation, cough or expectoration, chest pain or abdominal pain, diarrhea. She received her chemotherapy 2 weeks back, recent radiation yesterday and was seen by radiotherapist today for expected radiation but she had severe vomiting episodes and hypotension at the cancer center so she was sent to ER. Vitals: MAXIMUM TEMPERATURE 98.6, pulse 83, respiration 18, blood pressure 99/60 , improved to 105/55, saturating 98% on room air. On exam: A O 3, cooperative, no acute distress, neck supple, mild skin discoloration on neck, scars on neck for dissection, JVD normal, oral thrush mostly on palate, mucosa dry, no focal neurological deficit, no dependent edema, no obvious skin rashes or inflammation CVS: S1-S2, RRR. RS: Clear to auscultate bilaterally. Abdomen: Soft, NT, ND, bowel sounds present, PEG tube dressed. Sancuso patch on right arm Assessment and plan 57 year old female currently on chemotherapy and radiation for squamous cell carcinoma of head and neck S/P surgery presented in ER for intractable nausea vomiting secondary to chemotherapy, radiation and malignancy. Patient is unable to tolerate oral feeding at home so PEG tube was placed in a previous hospitalization. She has been using it for nutrition and tolerating clear liquids at times orally but has been noticing severe nausea vomiting in the last few days. She went for radiation treatment today which she had intractable vomiting, blood pressure was 99/67 so she was sent to ER. Patient appears dehydrated and she has oral thrush otherwise complete examination unremarkable. She has mild leukopenia with absolute neutrophil count is normal. No obvious fever. Patient does not have odynophagia or dysphagia for liquids. + Chemotherapy and radiation therapy related nausea vomiting + Oral thrush + History of head and neck squamous cell carcinoma S/P surgery currently on chemotherapy and radiation - Admit to general medicine - Continue gentle hydration with D5 half normal saline at 100 mL per hour for 1 more liter - Continue PEG feeding - When necessary Zofran and Phenergan for nausea vomiting - If intractable we can try Compazine or small doses of Ativan - Given her oral thrush I would avoid dexamethasone at this point - Continue Sancuso patch - Continue oral fluconazole - Inform oncologist about patient being in hospital - DVT prophylaxis - Pain control - Patient does not want nystatin swish and swallow because of its taste, was taking alternative oral mouthwash at home but does not recall the name. Need to confirm this in the a.m.
[2017-11-20 21:39] VITALS: BP 104/62
[2017-11-20 23:41] VITALS: BP 102/66
--- NOTE | 2017-11-20 23:47 | Admission Certification ---
Admission Certification Certification Statement - As attending physician, I certify that at the time of - admission, based on clinical presentation, severity of - symptoms, need for further diagnostic testing and - therapeutic interventions, and risk of adverse outcomes - without in-hospital treatment, in my clinical assessment, - this patient requires an acute hospital stay for a minimum - of two nights or longer. I have also considered psychsocial - factors such as support system, advanced age, financial - issues, cognitive issues, and failed out-patient treatments, - past re-admission history, safety of patient, and lack of - compliance as applicable. Specific rationale supporting this admission is: Intractable nausea vomiting secondary to chemotherapy and radiation
[2017-11-21 06:20] VITALS: BP 104/68
--- NOTE | 2017-11-21 07:05 | PN- Housestaff ---
Bryon Dawkins MD,[facility] 11/21/17 0704: Subjective Follow-up For: Nausea and vomiting Subjective: Patient visited today, was lying in bed comfortably in no acute distress, was alert and oriented. No fever or chills, no shortness of breathing, no chest pain, no other events. Reported improved nausea and vomiting Nutrition consutled PEG tube feeding during night Review of Systems Constitutional: Reports: see HPI. Objective Last 24 Hrs of Vital Signs/I&O Vital Signs Date Time Temp Pulse Resp B/P B/P Pulse O2 O2 Flow FiO2 Mean Ox Delivery Rate 11/21 1444 99.0 71 18 100/60 99 Room Air 11/21 0620 99.0 79 16 104/68 98 Room Air 11/20 2341 75 102/66 11/20 2139 99.2 77 19 104/62 100 Room Air 11/20 2047 98.6 83 16 105/55 98 Room Air 11/20 1757 98.0 77 18 113/65 100 Room Air 11/20 1756 Room Air Intake & Output 11/21 1600 11/21 0800 11/21 0000 Intake Total 5068 411 0322 Output Total Balance 9912 059 5273 Intake, IV 340 509 7767 Intake, Oral 200 100 100 Patient 149 lb 149 lb 149 lb Weight Weight Bed scale Bed scale Measurement Method Physical Exam General Appearance: Alert, Oriented X3, Cooperative Skin: rash around neck Skin Temp/Moisture Exam: Warm/Dry Sepsis Skin Exam (color): Normal for Ethnicity HEENT: Atraumatic Cardiovascular: Normal S1, Normal S2 Lungs: Normal Air Movement Abdomen: Soft, No Tenderness Neurological: Strength at 5/5 X4 Ext Extremities: No Edema Current Medications: Current Medications Sig/Rey Start time Last Medication Dose Route Stop Time Status Admin Dextrose/Sodium 1,000 ML Q10H 11/20 2199 AC 11/21 Chloride IV 0919 Enoxaparin Sodium 40 MG 11/20 AC SC Fluconazole 100 MG DAILY 11/21 0900 DC 11/21 PO 11/25 0901 0919 Glycerin 2 SPRAY Q2P PRN 11/21 0730 AC PO Ibuprofen 600 MG Q6 PRN 11/20 2014 AC PO Lidocaine 15 ML BID 11/21 2100 UNVr PO Lidocaine/Diphenhydr/ 5 ML 4 TIMES/DAY 11/21 1300 AC Alum/Mg/Simeth PO Nystatin 5 ML 4 TIMES/DAY 11/21 1057 AC 11/21 PO 1501 Omeprazole 40 MG DAILY AC 11/21 0700 AC PO Ondansetron HCl 4 MG Q6P PRN 11/20 2200 AC 11/21 IV 1233 Oxycodone/ 1 TAB TID 11/21 0900 AC 11/21 Acetaminophen PO 1502 Patient Medication 1 ED ONE ONE 11/21 1530 DC Teaching ED 11/21 1531 Prochlorperazine 10 MG Q6 11/20 2359 AC 11/21 PO 0055 Sodium Chloride 1,000 ML BOLUS ONE 11/20 2200 DC 11/20 IV 11/20 2259 2214 Sodium Chloride 1,000 ML BOLUS ONE 11/20 1615 DC 11/20 IV 11/20 1714 1634 Last 24 Hrs of Lab/Vito Results Last 24 Hrs of Labs/Mics: Microbiology 11/20 2000 BLOOD: Blood Culture - CAN Cancelled: DUP 11/20 1944 BLOOD: Blood Culture - RES Assessment/Plan Assessment: February 57-year-old female was 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 She was setting by the counts include 234 beds at the [facility] [place] for nausea vomiting status post chemo and radiation. She received further chemotherapy a week ago, and radiation therapy last Saturday, however did not follow with Dr. Watts onto today. Patient had ongoing nausea vomiting associated with chemotherapy/radiation therapy 4 months. She had a feeding tube and port, both appeared to be clear in dressing, but she stated that she has not been using the feeding tube today due to nausea. At home she was mostly on clear liquid diet to her tolerance, in addition to the PEG tube feeding. Patient denied fever/cough/SOB/Chest Pain/Palpitation/Abdominal pain, bowel movement/urinary abnormality, or other skin/musculoskeletal/neurological disorders. On admission, Vitals: Stable with BP 90/60, increased to 115/65 -CBC: WBC 2.8, HH 10.9/30.4 -BMP: unremarkable -Interventions in ER: Normal saline bolus 1 L, Phenergan IV 1 Problem list & Assessment: #Nausea/vomiting associated with chemotherapy: Patient's nausea vomiting has been going on chronically ever since starting his chemotherapy/radiation. Currently we are managing fluid status to keep patient stable. 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 Patient will not likely to have any neurological intervention tomorrow. Hospital Course: - Admit to general medicine floor - Continue maintenance fluids including D5 W half-normal saline - 1 L bolus 1 as patient's blood pressure dropped down to 105/55 on admission. - Antiemetics as needed -Nystatin swish and swallow, lidocaine -Continue PPI -Start PEG tube feeding per nutrition DVT prophylaxis Lovenox + ALPS Clear Liquid Diet w/ patient's request + Tube feeding in the AM Full Code Problem List: 1. Intractable vomiting Pain Ratin Pain Location: None Pain Goal: Pain 4 or less Pain Plan: Continue current plan Lidocain PO Tomorrow's Labs & Rationales: None Fiona Merida MD 11/21/17 1300: Attending MD Review Statement Attending Statement Attending MD Statement: examined this patient, discuss w/resident/PA/SUPPLY ANALYST, agreed w/resident/PA/SUPPLY ANALYST, discussed with family, reviewed EMR data (avail), discussed with nursing, discussed with case mgmt, amended to note Attending Assessment/Plan: Patient seen and examined. She is known to me from a previous hospitalization which she had PEG tube placed. At that time she was anxious about the tube feeding as she felt that this would induce nausea and vomiting. Apparently since discharge she has been taking barely 1 can of tube feeding today. She reports that she is anxious that the tube feeds will cause vomiting. She has been complaining of nausea on and off at home. She does report some episodes of vomiting however on further questioning she had a possible admit that she only vomits very small amount of clear liquid material. She certainly not vomiting or acute feeding. She admits to oral intake however the amount is very small. She is only able to take small sips of fluid. reports that the most she is taking his small bowl of soup since she was discharged a few weeks ago. She was at the cancer center for radiation therapy and stability and she was noted to be unwell. She was sent to the ER for evaluation. In the ER she was reported to be hypotensive with blood pressure in the 60s systolic. Blood pressure did improve with IV hydration. Laboratory data in the ER was not suggestive of significant dehydration. On exam today she is alert and oriented 3. She is not in any acute pain. She reports periods of nausea on and off. Denies any vomiting today. Abdomen is soft and nontender with normal bowel sounds. PEG site is intact. Problems: 1. Recurrent nausea. 2. 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 3. Dysphagia status post PEG tube placement. 4. Esophageal cancer. 5. Hypertension; resolved Plan: -Recommend keeping patient n.p.o. for now. -Nausea may be caused by irritation from her radiation therapy. She has not received chemotherapy in several weeks. She has no evidence of mechanical obstruction. There may be a component of anxiety contributing to her symptoms. She is of the impression that the PEG feeding will induce nausea and vomiting. I did certified lactation counselor her that this was not the case. I did suggest a mild anxiolytic medication however she declined at this time. -Blood pressure is currently stable. -Certified Phlebotomist consultation to optimize PEG tube feeding. Patient reports that she only takes 1 can of tube feeding a day. Her oral intake is essentially insignificant. -Antiemetic therapy with Zofran which helped the patient during her previous hospitalization. -Mobilize patient as tolerated. -She is due for radiation therapy later on today. -Recommend lidocaine oral solution to help with her esophagitis.
[2017-11-21 14:44] VITALS: BP 100/60
[2017-11-21 22:44] VITALS: BP 94/52
[2017-11-22 06:20] VITALS: BP 94/60
[2017-11-22] MEDS ORDERED: NYSTATIN100000 UNI PO (08:23)
[2017-11-22] MEDS ORDERED: LIDOCAINE HCL V15 ML PO (08:23)
--- NOTE | 2017-11-22 08:32 | PN- Housestaff ---
Bryon Dawkins MD,[facility] 11/22/17 0832: Subjective Follow-up For: Intractable nausea and vomiting Squama cell carcinoma of head and neck Subjective: Patient visited today, was lying in bed in no acute distress, was alert and oriented. Reported improved nausea and vomiting today, was able to better tolerate the tube feeding over night. This necessitates patient to continue this current feeding schedule to prevent malnutrition and further hospitalization. After nutrition consult tube feeding schedual would be as follows that should be administered through pump overnight: Formula: Jevity 1.5, Flush water 125 mL every 3 hours Progression of the tube feeding First 12 hours: rate 30ml Second 12 hours: rate 60ml third 12 hours: rate 90ml Tube feeding to run from 6 PM to 6 AM, bolus 1 can at lunch time 240 mL No fever or chills, no shortness of breathing, no chest pain, no other events. Patient can be discharge pending insurance approval. Review of Systems Constitutional: Reports: see HPI. Objective Last 24 Hrs of Vital Signs/I&O Vital Signs Date Time Temp Pulse Resp B/P B/P Pulse O2 O2 Flow FiO2 Mean Ox Delivery Rate 11/22 0620 98.6 86 18 94/60 97 Room Air 11/21 2244 98.0 74 18 94/52 98 11/21 1444 99.0 71 18 100/60 99 Room Air Intake & Output 11/22 1600 11/22 0800 11/22 0000 Intake Total 560 350 Output Total Balance 560 350 Intake, IV 200 Intake, Oral 120 Intake, Tube 240 150 Feeding Intake, Tube 200 Irrigant Patient 149 lb Weight Weight Bed scale Measurement Method Physical Exam General Appearance: Alert, Oriented X3, Cooperative, No Acute Distress Skin: skin rash around neck Skin Temp/Moisture Exam: Warm/Dry HEENT: Atraumatic, EOMI Cardiovascular: Normal S1, Normal S2 Lungs: Clear to Auscultation, Normal Air Movement Abdomen: Soft, No Tenderness, No Hepatospenomegaly, PEG tube in place Neurological: Normal Speech, Strength at 5/5 X4 Ext Extremities: No Edema Current Medications: Current Medications Sig/Rey Start time Last Medication Dose Route Stop Time Status Admin Dextrose/Sodium 1,000 ML Q10H 11/20 2199 DC 11/21 Chloride IV 0919 Enoxaparin Sodium 40 MG 11/20 2100 AC SC Fluconazole 100 MG DAILY 11/21 0900 DC 11/21 PO 11/25 0901 0919 Glycerin 2 SPRAY Q2P PRN 11/21 0730 AC PO Ibuprofen 600 MG Q6 PRN 11/20 2015 AC PO Lidocaine 15 ML BID 11/21 2100 AC 11/22 PO 0839 Lidocaine/Diphenhydr/ 5 ML 4 TIMES/DAY 11/21 1300 DC Alum/Mg/Simeth PO Nystatin 5 ML 4 TIMES/DAY 11/21 1057 AC 11/22 PO 0837 Omeprazole 40 MG DAILY AC 11/21 0700 AC 11/22 PO 0626 Ondansetron HCl 4 MG .STK-MED ONE 11/21 1225 DC IM 11/21 1226 Ondansetron HCl 4 MG Q6P PRN 11/20 2200 AC 11/21 IV 1233 Oxycodone/ 1 TAB ONCE ONE 11/22 0415 DC 11/22 Acetaminophen PO 11/22 0416 0409 Oxycodone/ 1 TAB TID 11/21 0900 AC 11/22 Acetaminophen PO 0841 Patient Medication 1 ED ONE ONE 11/21 1530 DC Teaching ED 11/21 1531 Prochlorperazine 10 MG Q6 11/20 2359 AC 11/22 PO 0626 Assessment/Plan Assessment: February 57-year-old female was PMH: 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 On admission, Vitals: Stable with BP 90/60, increased to 115/65 -CBC: WBC 2.8, HH 10.9/30.4 -BMP: unremarkable -Interventions in ER: Normal saline bolus 1 L, Phenergan IV 1 patient was admitted to GM floor for management of following conditions: Intractable nausea or vomiting Squama cell cancer of head and neck status post lymph node dissection Patient was admitted to general medicine floor. Nausea and vomiting were controlled by medication. Patient was on bolus tube feeding prior to current admission, however she was not able to tolerate bolus feedings. Nutrition was consulted and a new nutrition schedule was planned. It was planned to continue nutrition for 12 hours from 6 PM to 6 AM as below and need to be administered through pump: Formula: Jevity 1.5, Flush water 125 mL every 3 hours Progression of the tube feeding First 12 hours: rate 30ml Second 12 hours: rate 60ml third 12 hours: rate 90ml Tube feeding to run from 6 PM to 6 AM, bolus 1 can at lunch time 240 mL Patient was stable to be discharged upon insurance approval. Odynophagia: Responded well to nystatin and lidocain sollution. FC Tube feeding DVT ppx Problem List: 1. Intractable nausea and vomiting 2. Squamous cell carcinoma Pain Ratin Pain Location: None Pain Goal: Pain 4 or less Pain Plan: Continue current plan Tomorrow's Labs & Rationales: None Fiona Merida MD 11/22/17 1157: Attending MD Review Statement Attending Statement Attending MD Statement: examined this patient, discuss w/resident/PA/OYSTER SHUCKER, agreed w/resident/PA/OYSTER SHUCKER, reviewed EMR data (avail), discussed with nursing, discussed with case mgmt, amended to note Attending Assessment/Plan: Patient seen and examined. She was evaluated by the accounting instructor yesterday. Due to concerns of patient's symptoms were brought about by bolus feeding the decision was made to start patient on continuous feeding overnight. She was started on this last night and did well. The main issue was she did not tolerate bolus fluid flushes and this had to be spaced out over time. She has done well with no complaints of nausea or vomiting overnight. Denies any abdominal pain this morning. She is scheduled for radiation therapy today. We will continue another session of continuous feeding overnight. If patient tolerates this she will be discharged tomorrow morning with plan to continue overnight feeding at home. Arrangements will be made for her to receive a feeding pump upon discharge. Patient is in agreement with this plan. 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 At this point I do not believe there is any benefit of continuing nystatin on her.
--- NOTE | 2017-11-22 08:57 | Patient Discharge Instructions ---
Discharge Instructions General Discharge Information You were seen/treated for: Intractable vomiting Watch for these problems: Severe vomiting, nausea, shortness of breathing, cough, sputum, redness and discharge around the tube site, or worsening of symptoms Special Instructions: Please follow with your PCP the next week. Please continue tube feeding as instructed in the hospital as follows: Formula: Jevity 1.5, Flush water 125 mL every 3 hours Progression of the tube feeding, your goal should be 90 ml Tube feeding to run from 6 PM to 6 AM, bolus 1 can at lunch time 240 mL reduce oral intake if inducing nausea. Please continue to follow with your PCP and intelligence specialist regarding continuation of the tube feeding. Diet Continue normal diet: No (as noted above) Activity Full Activity/No Limits: No Activity Self Limited: Yes Acute Coronary Syndrome Inclusion Criteria At DC or during hospital stay patient has or had the following: ACS DIAGNOSIS No Discharge Core Measures Meds if any: Prescribed or Continued at Discharge Meds if any: NOT Prescribed or Continued at Discharge Congestive Heart Failure Inclusion Criteria At DC or during hospital stay patient has or had the following: CHF DIAGNOSIS No Discharge Core Measures Meds if any: Prescribed or Continued at Discharge Meds if any: NOT Prescribed or Continued at Discharge Cerebrovascular accident Inclusion Criteria At DC or during hospital stay patient has or had the following: CVA/TIA Diagnosis No Discharge Core Measures Meds if any: Prescribed or Continued at Discharge Meds if any: NOT Prescribed or Continued at Discharge Venous thromboembolism Inclusion Criteria VTE Diagnosis No VTE Type NONE VTE Confirmed by (Test) NONE Discharge Core Measures - Per Current guidelines, there needs to be overlap - treatment for the first 5 days of Warfarin therapy. - If discharged on Warfarin prior to 5 days of - overlap therapy, the patient will need to be - assessed for post discharge needs including - *Post discharge parental anticoagulation - *Warfarin and/or parental anticoagulation education - *Follow up date to check INR post discharge At least 5 days overlap therapy as Inpatient No Meds if any: Prescribed or Continued at Discharge Note: Overlap Therapy is Warfarin and Anticoagulant Meds if any: NOT Prescribed or Continued at Discharge Note: Overlap Therapy is Warfarin and Anticoagulant Meds if any: NOT Prescribed or Continued at Discharge
[2017-11-22 14:25] VITALS: BP 100/62
[2017-11-22 22:44] VITALS: BP 100/60
[2017-11-23 07:02] VITALS: BP 94/62
--- NOTE | 2017-11-23 07:47 | PN- Att Addend ---
Attending Addendum Attending Brief Note Patient seen and examined. Resting comfortably and not in any acute distress. No issues overnight reported by nursing staff. She did report some episodes of nausea during the daytime which abated with use of antiemetic therapy. She tolerated tube feeding overnight with no complaints of nausea vomiting. No complaints of abdominal pain. She underwent her radiation therapy session yesterday with no issues. She is resting comfortably this morning. Afebrile hemodynamically stable. On examination she is not in any acute distress. Abdomen is soft and nontender. She is medically stable to be discharged home today. She is to follow-up with oncology service as an outpatient. She she will be on continuous tube feeding overnight at home in order to avoid the boluses appear to have been contributing to her nausea. In addition she'll continue on the lidocaine oral solution for her radiation-induced esophagitis.
--- NOTE | 2017-11-23 09:14 | PN- Housestaff ---
Subjective Follow-up For: N/V Subjective: No overnight events. The patient has had no further nausea/vomiting has no other complaints at this time.. She has hesitation going home because of the feeding tube. She expressed interest in having services at home. Review of Systems Constitutional: Reports: no symptoms. EENTM: Reports: no symptoms. Cardiovascular: Reports: no symptoms. Respiratory: Reports: no symptoms. Gastrointestinal: Reports: no symptoms. Genitourinary: Reports: no symptoms. Musculoskeletal: Reports: no symptoms. Skin: Reports: no symptoms. Neurological/Psychological: Reports: no symptoms. Hematologic/Endocrine: Reports: no symptoms. Immunologic/Allergic: Reports: no symptoms. Objective Last 24 Hrs of Vital Signs/I&O Vital Signs Date Time Temp Pulse Resp B/P B/P Pulse O2 O2 Flow FiO2 Mean Ox Delivery Rate 11/23 0702 99.6 88 20 94/62 95 Room Air 11/22 2244 99.6 79 18 100/60 95 Room Air 11/22 1425 98.0 80 18 100/62 96 Room Air Intake & Output 11/23 1600 11/23 0800 11/23 0000 Intake Total 630 350 Output Total Balance 630 350 Intake, IV 20 10 Intake, Oral 120 120 Intake, Tube 240 120 Feeding Intake, Tube 250 100 Irrigant Physical Exam General Appearance: Alert, Oriented X3, Cooperative, No Acute Distress Cardiovascular: Regular Rate, Normal S1, Normal S2 Lungs: Clear to Auscultation Abdomen: Normal Bowel Sounds, Soft, No Tenderness Extremities: No Edema, Normal Pulses, No Tenderness/Swelling Current Medications: Current Medications Sig/Rey Start time Last Medication Dose Route Stop Time Status Admin Enoxaparin Sodium 40 MG 11/20 AC SC Glycerin 2 SPRAY Q2P PRN 11/21 0730 AC PO Ibuprofen 600 MG Q6 PRN 11/20 2014 AC PO Lidocaine 15 ML BID 11/21 2099 AC 11/22 PO 0839 Nystatin 5 ML 4 TIMES/DAY 11/21 1057 AC 11/22 PO 205 Omeprazole 40 MG DAILY AC 11/21 0700 AC 11/23 PO 0551 Ondansetron HCl 4 MG .STK-MED ONE 11/22 1756 DC IM 11/22 1757 Ondansetron HCl 4 MG .STK-MED ONE 11/22 1221 DC IM 11/22 1222 Ondansetron HCl 4 MG Q6P PRN 11/20 2200 AC 11/22 IV 1222 Oxycodone/ 1 TAB TID 11/21 0900 AC 11/22 Acetaminophen PO 2058 Prochlorperazine 10 MG Q6 11/20 2359 AC 11/23 PO 0551 Assessment/Plan Assessment: February 57-year-old female was PMH: 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 On admission, Vitals: Stable with BP 90/60, increased to 115/65 -CBC: WBC 2.8, HH 10.9/30.4 -BMP: unremarkable -Interventions in ER: Normal saline bolus 1 L, Phenergan IV 1 patient was admitted to GM floor for management of following conditions: Intractable nausea or vomiting Squama cell cancer of head and neck status post lymph node dissection Patient was admitted to general medicine floor. Nausea and vomiting were controlled by medication. Patient was on bolus tube feeding prior to current admission, however she was not able to tolerate bolus feedings. Nutrition was consulted and a new nutrition schedule was planned. It was planned to continue nutrition for 12 hours from 6 PM to 6 AM as below and need to be administered through pump: Formula: Jevity 1.5, Flush water 125 mL every 3 hours Progression of the tube feeding First 12 hours: rate 30ml Second 12 hours: rate 60ml third 12 hours: rate 90ml Tube feeding to run from 6 PM to 6 AM, bolus 1 can at lunch time 240 mL Patient was stable to be discharged upon insurance approval. Will talk to case management to get about getting her services at home. Otherwise she is stable for discharge today. Odynophagia: Responded well to nystatin and lidocain sollution. FC Tube feeding DVT ppx Problem List: 1. Intractable nausea and vomiting Pain Ratin Pain Location: no Pain Goal: Remain pain free Pain Plan: see a/p Tomorrow's Labs & Rationales: no
[2017-11-23] MEDS ORDERED: LIDOCAINE HCL V15 ML PO (09:55)
[2017-11-23 14:25] VITALS: BP 83/62
[2017-11-23 15:47] VITALS: BP 86/60
[2017-11-23 16:00] VITALS: BP 120/70
[2017-11-23 22:30] VITALS: BP 110/70
[2017-11-24 06:32] VITALS: BP 96/60
--- NOTE | 2017-11-24 09:21 | PN- Housestaff ---
Bryon Dawkins MD,[facility] 11/24/17 0921: Subjective Follow-up For: intractable nausea and vomiting Subjective: Patient visited today, was lying in bed comfortably in no acute distress, was alert and oriented. No fever or chills, no shortness of breathing, no chest pain, no other events. To be doing discontinued yesterday with 30 mL overnight. Talked with attending, decided to continue with 60 mL this morning. We will start feeding overnight and continue with 90 mL tomorrow morning. Review of Systems Constitutional: Reports: see HPI. Objective Last 24 Hrs of Vital Signs/I&O Vital Signs Date Time Temp Pulse Resp B/P B/P Pulse O2 O2 Flow FiO2 Mean Ox Delivery Rate 11/24 0632 98.8 83 20 96/60 97 Room Air 11/23 2230 97.8 80 20 110/70 93 Room Air 11/23 1600 120/70 11/23 1547 86/60 11/23 1425 99.3 83 20 83/62 95 Room Air Intake & Output 11/24 1600 11/24 0800 11/24 0000 Intake Total 140 580 Output Total Balance 140 580 Intake, IV 20 20 Intake, Oral 120 120 Intake, Tube 240 Feeding Intake, Tube 200 Irrigant Physical Exam General Appearance: Alert, Oriented X3, Cooperative, No Acute Distress Skin Temp/Moisture Exam: Warm/Dry Sepsis Skin Exam (color): Normal for Ethnicity HEENT: Atraumatic, EOMI Cardiovascular: Normal S1, Normal S2 Lungs: Normal Air Movement Abdomen: PEG tube in place Neurological: Normal Speech, Strength at 5/5 X4 Ext Current Medications: Current Medications Sig/Rey Start time Last Medication Dose Route Stop Time Status Admin Enoxaparin Sodium 40 MG 11/20 AC SC Glycerin 2 SPRAY Q2P PRN 11/21 729 AC PO Ibuprofen 600 MG Q6 PRN 11/20 2014 AC PO Lidocaine 15 ML BID 11/21 2099 AC 11/23 PO 0942 Nystatin 5 ML 4 TIMES/DAY 11/21 1057 DC 11/24 PO 0915 Omeprazole 40 MG DAILY AC 11/21 07 AC 11/24 PO 0543 Ondansetron HCl 4 MG Q6P PRN 11/20 220 AC 11/22 IV 1222 Oxycodone/ 1 TAB TID 11/21 09 AC 11/24 Acetaminophen PO 0915 Prochlorperazine 10 MG Q6 11/20 2359 AC 11/24 PO 1131 Sodium Chloride 1,000 ML BOLUS ONE 11/23 1600 DC 11/23 IV 11/23 1576 3331 Assessment/Plan Assessment: February 57-year-old female was PMH: 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 On admission, Vitals: Stable with BP 90/60, increased to 115/65 -CBC: WBC 2.8, HH 10.9/30.4 -BMP: unremarkable -Interventions in ER: Normal saline bolus 1 L, Phenergan IV 1 patient was admitted to GM floor for management of following conditions: Intractable nausea or vomiting Squama cell cancer of head and neck status post lymph node dissection Patient was admitted to general medicine floor. Nausea and vomiting were controlled by medication. Patient was on bolus tube feeding prior to current admission, however she was not able to tolerate bolus feedings. Nutrition was consulted and a new nutrition schedule was planned. It was planned to continue nutrition for 12 hours from 6 PM to 6 AM as below and need to be administered through pump: Formula: Jevity 1.5, Flush water 125 mL every 3 hours Progression of the tube feeding First 12 hours: rate 30ml Second 12 hours: rate 60ml third 12 hours: rate 90ml Tube feeding to run from 6 PM to 6 AM, bolus 1 can at lunch time 240 mL Patient was stable to be discharged upon insurance approval. - continue 60ml tube feeding this am - stop overnight - 2h with 90ml tomorrow morning Odynophagia: Responded well to nystatin and lidocain sollution. FC Tube feeding DVT ppx Problem List: 1. Intractable nausea and vomiting Pain Ratin Pain Location: None Pain Goal: Pain 4 or less Pain Plan: NA Tomorrow's Labs & Rationales: None Fiona Merida MD 11/24/17 0929: Attending MD Review Statement Attending Statement Attending MD Statement: examined this patient, discuss w/resident/PA/INTERNATIONAL GUEST COORDINATOR, agreed w/resident/PA/INTERNATIONAL GUEST COORDINATOR, reviewed EMR data (avail), discussed with nursing, discussed with case mgmt, amended to note Attending Assessment/Plan: Patient seen and examined. Yesterday patient was reluctant to be discharged home stating that she did not feel comfortable utilizing the tube feeding pump. She wanted to have the process redemonstrated to her. In addition case management reported that her insurance company has sent supplies needed for tube feeding to her home. However they did not approve to pay for the tube feeds. Patient was made aware of this. Nursing staff reports that overnight they demonstrated to the patient how to utilize the pump. Patient verbalized understanding. She would still like visiting nurses to be set up to follow her at home. She denied any nausea vomiting overnight. Denies any abdominal pain. Tolerated tube feeding overnight. This morning she is resting comfortably not in any distress. Case discussed with journeyman machinist this morning. Patient's goal rate for tube feeding should be 90 cc an hour. She is currently only at 30 cc an hour. Recommendations are to increase her goal to 60 cc an hour today. We will try this during the day to determine that the patient is tolerating it. Tomorrow morning we will try her at 90 cc an hour for a few hours. If she tolerates this she will be discharged home tomorrow to continue with tube feedings at night at 90 cc an hour.
[2017-11-24 13:45] VITALS: BP 110/80
[2017-11-24 22:47] VITALS: BP 98/60
[2017-11-25 06:37] VITALS: BP 110/64
[2017-11-25 06:38] VITALS: BP 110/64
--- NOTE | 2017-11-25 07:09 | PN- Housestaff ---
Bryon Dawkins MD,[facility] 11/25/17 0709: Subjective Follow-up For: intractable nausea and vomiting Subjective: Patient visited today, was lying in bed comfortably in no acute distress, was alert and oriented. No fever or chills, no shortness of breathing, no chest pain, no other events. Patient tolerated goal feeding 90ml, stable to be discharged. Review of Systems Constitutional: Reports: see HPI. Objective Last 24 Hrs of Vital Signs/I&O . Physical Exam General Appearance: Alert, Oriented X3, Cooperative, No Acute Distress Skin: No Significant Lesion Sepsis Skin Exam (color): Normal for Ethnicity HEENT: Atraumatic, Mucous Membr. 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 On admission, Vitals: Stable with BP 90/60, increased to 115/65 -CBC: WBC 2.8, HH 10.9/30.4 -BMP: unremarkable -Interventions in ER: Normal saline bolus 1 L, Phenergan IV 1 patient was admitted to GM floor for management of following conditions: Intractable nausea or vomiting Squama cell cancer of head and neck status post lymph node dissection Patient was admitted to general medicine floor. Nausea and vomiting were controlled by IV zofran antiemetic medications. Patient was on bolus tube feeding prior to current admission, however she was not able to tolerate bolus feedings. rail specialist was consulted and a new nutrition schedule was planned. It was planned to continue nutrition for 12 hours from 6 PM to 6 AM as below and need to be administered through pump: Formula: Jevity 1.5, Flush water 125 mL every 3 hours Progression of the tube feeding First 12 hours: rate 30ml Second 12 hours: rate 60ml third 12 hours: rate 90ml Tube feeding to run from 6 PM to 6 AM, bolus 1 can at lunch time 240 mL Patient was able to tolerate the 90ml rate. Patient was stable to be discharged. Odynophagia: Responded well to nystatin and lidocain sollution. Radiotherapy continued while patient was in hospital. Patient was stable to be discharged. Problem List: 1. Intractable nausea and vomiting Pain Ratin Pain Location: none Pain Goal: Pain 4 or less Pain Plan: Contiue current plan Tomorrow's Labs & Rationales: None Fiona Merida MD 11/25/17 1228: Attending MD Review Statement Attending Statement Attending MD Statement: examined this patient, discuss w/resident/PA/SENIOR SYSTEMS ADMINISTRATOR, agreed w/resident/PA/SENIOR SYSTEMS ADMINISTRATOR, reviewed EMR data (avail), discussed with nursing, discussed with case mgmt, amended to note Attending Assessment/Plan: Patient seen and examined. Resting comfortably not in any acute distress. No issues overnight. She tolerated tube feeding yesterday and has been increased to goal this morning. She is tolerating the tube feeding with no complaints of nausea vomiting or abdominal pain. She will be purchasing her tube feeds out-of -pocket. She will also try to see if she is able to reuse the container for the pump feeds and use the current feeds are being paid by her insurance company. She is scheduled for radiation therapy later on today and will be going home from there.
--- NOTE | 2017-11-26 10:15 | Discharge Summary ---
Visit Information Visit Dates Admission Date: 11/20/17 Discharge Date: 11/25/17 Hospital Course Course Attending Physician: Fiona Mreida MD Primary Care Physician: Shivam DOMINIQUE,[facility] Course: Ms. 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 On admission, Vitals: Stable with BP 90/60, increased to 115/65 -CBC: WBC 2.8, HH 10.9/30.4 -BMP: unremarkable -Interventions in ER: Normal saline bolus 1 L, Phenergan IV 1 patient was admitted to GM floor for management of following conditions: Intractable nausea or vomiting Squama cell cancer of head and neck status post lymph node dissection Patient was admitted to general medicine floor. Nausea and vomiting were controlled by IV zofran antiemetic medications. Patient was on bolus tube feeding prior to current admission, however she was not able to tolerate bolus feedings. electronic data interchange specialist was consulted and a new nutrition schedule was planned. It was planned to continue nutrition for 12 hours from 6 PM to 6 AM as below and need to be administered through pump: Formula: Jevity 1.5, Flush water 125 mL every 3 hours Progression of the tube feeding First 12 hours: rate 30ml Second 12 hours: rate 60ml third 12 hours: rate 90ml: GOAL rate Tube feeding to run from 6 PM to 6 AM, bolus 1 can at lunch time 240 mL Patient was able to tolerate the 90ml rate. Odynophagia: Responded well to nystatin and lidocain sollution. Radiotherapy continued while patient was in hospital. Patient was stable to be discharged. Patient was discharged with recommendations below. Allergies: Coded Allergies: Penicillins (PER PT MD CRAFT ADDED PCN 10/01/17) diphenhydramine (From BENADRYL) (BODY ACHES 10/01/17) doxycycline (ANAPHYLAXIS 10/01/17) guaifenesin (From ROBITUSSIN) (BODY ACHES 10/01/17) oxacillin (ANAPHYLACTIC 10/01/17) Disposition Summary Disposition Principal Diagnosis: Nausea and vomiting Additional Diagnosis: PEG tube feeding Squamous cell carcinoma of head and neck Discharge Disposition: home or self care Discharge Instructions General Discharge Information Code Status: Full Code Patient's Diet: PEg tube feeding limit PO itnake per nausea and vomiting Patient's Activity: Self limited Follow-Up Instructions/Appts: Please follow with your PCP the next week. Please continue tube feeding as instructed in the hospital as follows: Formula: Jevity 1.5, Flush water 125 mL every 3 hours Progression of the tube feeding, your goal should be 90 ml Tube feeding to run from 6 PM to 6 AM, bolus 1 can at lunch time 240 mL reduce oral intake if inducing nausea. Please continue to follow with your PCP and dairy nutrition consultant regarding continuation of the tube feeding. Medications at Discharge Discharge Medications: Continue taking these medications: Lansoprazole (Lansoprazole) 30 MG CAPSULE.DR 1 Capsule ORAL DAILY Comments: NOT GIVEN IN THE HOSPITAL Saliva Substitute Combo No.2 (Caphosol) 900 ML SOLUTION 900 Milliliters ORAL DAILY as needed for ITCHING Qty = 30 Comments: NOT GIVEN IN THE HOSPITAL Prochlorperazine Maleate (Prochlorperazine Maleate) 10 MG TABLET 1 Tablet ORAL EVERY SIX HOURS Qty = 30 Comments: NOT GIVEN IN THE HOSPITAL Oxycodone HCl/Acetaminophen (Percocet 5-325 MG Tablet) 5 MG-325 MG TABLET 1 Tablet ORAL THREE TIMES DAILY Comments: NOT GIVEN IN THE HOSPITAL Ondansetron HCl (Zofran) 4 MG TABLET 1 Tablet ORAL THREE TIMES DAILY Qty = 30 Instructions: Please take 1 tab TID for the next 7 days, you can then take it as needed. Comments: GIVEN VIA IV ADMINISTRATION IN HOSPITAL Last Taken: 11/07/17 Time: 1300 PM Start taking the following new medications: Lidocaine HCl (Lidocaine HCl Viscous) 2 % SOLUTION 15 Milliliters ORAL TWICE DAILY as needed for oral health Qty = 150 No Refills Instructions: . Copies To: Shivam DOMINIQUE,Arcadio Upton MD,Randy Johnston Attending MD Review Statement Documenting Attending: Fiona Merida MD Other Findings: Discharged in stable condition.
== END 2017-11-25 12:34 | DRG 392 ==
LOC: DELPENDDIS → ERH 15:13 → 2NA 19:50 → ERHI 19:50 → ENRESERV 20:20 → ENTRNSPT 20:46 → EDTRNSPTSTS 20:59 → 2NA 21:11 → CMPTRNSPT 21:23 → 2NA 11-21 09:28 → ENPENDDIS 11-23 09:37 → 2NA 11-25 12:34
PROVIDERS: Emergency Medicine
DX: R11.2 Nausea with vomiting, unspecified (principal); C76.0 Malignant neoplasm of head, face and neck; R13.10 Dysphagia, unspecified; T66.XXXA Radiation sickness, unspecified, initial encounter; I10 Essential (primary) hypertension; K20.8 Other esophagitis; Z91.19 Patient's noncompliance with other medical treatment and regimen; Z88.1 Allergy status to other antibiotic agents; Z88.0 Allergy status to penicillin; Z88.8 Allergy status to other drugs, medicaments and biological substances
CPT/HCPCS: 2NAP; 77386; 77387-TC; 77412-TC; 87040; 96361; 96374; J1642; J1650; J2405; J2550; J7042